=== PATIENT | female | born 1935 | race Hispanic/Latino ===

== ENCOUNTER 2016-07-20 08:36 | Observation (INO) | payer MEDICARE ==
[2016-07-20 08:51] VITALS: O2SAT 100; BMI 25.7
--- NOTE | 2016-07-20 09:03 | ED PDOC ---
Arrival/HPI - General Time Seen by Provider: 07/20/16 08:53 Historian: [facility] EM Caveat: Dementia - Critical Care Critical Care Minutes: 30 minutes - History of Present Illness Narrative History of Present Illness (Text): 07/20/16 09:00 Meenakshi Vegas is an 81 year old female who sent to emergency room by [facility] for hydration and blood transfusion due to anemia and elevated potassium. Patient responds to painful stimuli with moaning and localization. Patient has a gastronomy tube, a zuleta catheter, and picc line inserted. History and ROS is limited due to patient's acuity of condition. Time/Duration: Prior to Arrival Symptom Onset: Gradual Symptom Course: Worsening Severity Level: Mild Activities at Onset: Light Context: Other ([facility]) Associated Symptoms (Text): 07/20/16 09:13 Sent from the custodial for anemia and elevated potassium. Patient is nonverbal and unable to give any history. Past Medical History - Provider Review Nursing Documentation Reviewed: Yes - Infectious Disease Hx of Infectious Diseases: None - Tetanus Immunization Tetanus Immunization: Unknown - Past Medical History Past Medical History: No Previous - Cardiac Hx Cardiac Disorders: Yes (cad) Hx Cardiac Arrhythmia: Yes Hx Congestive Heart Failure: Yes Hx Hypertension: Yes Hx Pacemaker: No Other/Comment: valve replacement - Pulmonary Hx Respiratory Disorders: No - Neurological Hx Neurological Disorder: Yes HX Cerebrovascular Accident: Yes Hx Dementia: Yes Hx Seizures: Yes Hx Transient Ischemic Attacks (TIA): Yes (2012) - HEENT Hx HEENT Disorder: No - Renal Hx Renal Disorder: Yes - Endocrine/Metabolic Hx Endocrine Disorders: Yes Hx Hypothyroidism: Yes Hx Systemic Lupus Erythematosus: Yes - Hematological/Oncological Hx Blood Transfusions: Yes Hx Blood Transfusion Reaction: No - Integumentary Hx Dermatological Disorder: Yes Other/Comment: left buttock unstageable open wound 4.5cm x 4cm x 3.5cm deep with ss dng, multiple skin discolortions both arms, slight swelling left hand, b /l feet hammertoes, ble brown skin discolorations +1 edema lle, rleabove outer ankle skin indentation, brown skin discolorations left thigh, - Musculoskeletal/Rheumatological Hx Falls: Yes (past) - Gastrointestinal Hx Gastrointestinal Disorders: Yes Hx Gall Bladder Disease: Yes (1996) - Genitourinary/Gynecological Hx Incontinence: Yes (urine and stool) Hx Urinary Tract Infection: Yes - Psychiatric Hx Substance Use: No - Surgical History Hx Cholecystectomy: Yes (1996) Hx Orthopedic Surgery: Yes (b/l knee replacement) Other/Comment: left buttock debridement 2015, picc - Anesthesia Hx Anesthesia Reactions: No Hx Malignant Hyperthermia: No - Suicidal Assessment Feels Threatened In Home Enviroment: No Family/Social History - Physician Review Nursing Documentation Reviewed: Yes Family/Social History: No Known Family HX Smoking Status: Never Smoked Hx Alcohol Use: No Hx Substance Use: No Hx Substance Use Treatment: No Allergies/Home Meds Allergies/Adverse Reactions: Allergies codeine Allergy (Verified 09/26/15 06:28) RASH etodolac [From Lodine] Allergy (Verified 09/26/15 06:28) RASH sulfamethoxazole [From Bactrim] Allergy (Verified 09/26/15 06:28) SWELLING trimethoprim [From Bactrim] Allergy (Verified 09/26/15 06:28) SWELLING Home Medications: Home Meds Medication Instructions Recorded Confirmed Aspirin [Aspirin Chewable] 81 mg PO DAILY 07/05/15 07/03/16 Clopidogrel [Plavix] 75 mg PO DAILY 07/05/15 07/03/16 Docusate [Colace] 100 mg PO DAILY 07/05/15 07/03/16 Hydroxychloroquine Sulfate 400 mg PO DAILY 07/05/15 07/03/16 [Plaquenil] Levothyroxine [Synthroid] 50 mcg PO DAILY 07/05/15 07/03/16 Methylphenidate [Ritalin] 5 mg PO DAILY 07/05/15 07/03/16 Pantoprazole [Protonix EC Tab] 40 mg PO DAILY 07/05/15 07/03/16 buPROPion [Wellbutrin] 75 mg PO BID 07/05/15 07/03/16 Ferrous Sulfate [Feosol] 325 mg PO BID 04/15/16 07/03/16 azaTHIOprine [Azathioprine] 40 mg PO DAILY 04/15/16 07/03/16 Ascorbic Acid [Vitamin C 500 mg 500 mg PO DAILY 07/02/16 07/03/16 Tab] Atorvastatin [Lipitor] 40 mg PO DAILY 07/02/16 07/03/16 Magnesium Hydroxide [Milk Of 30 ml PO HS PRN 07/02/16 07/03/16 Magnesia] Prochlorperazine [Compazine Rectal 25 mg RC Q12H PRN 07/02/16 07/03/16 Supp] Zinc 1,000 mg PO DAILY 07/02/16 07/03/16 levETIRAcetam [Keppra] 250 mg PO BID 07/02/16 07/03/16 Review of Systems - Review of Systems Systems not reviewed;Unavailable: Dementia Physical Exam Vital Signs Reviewed: Yes Vital Signs Temp Pulse Resp BP Pulse Ox 07/20/16 11:11 68 18 131/57 L 100 07/20/16 10:03 76 18 142/84 100 07/20/16 08:50 99.4 F 75 18 140/73 100 07/20/16 08:45 82 20 140/73 99 Temperature: Afebrile Blood Pressure: Normal Pulse: Regular Respiratory Rate: Normal Appearance: Positive for: Other (Pale; multiple ecchymotic areas) Pain Distress: None Mental Status: Positive for: Alert and Oriented X 3 - Systems Exam Head: Present: Atraumatic, Normocephalic Pupils: Present: PERRL Extroacular Muscles: Present: EOMI Conjunctiva: Present: Normal Mouth: Present: Moist Mucous Membranes Pharnyx: No: ERYTHEMA, EXUDATE, TONSILS ENLARGED Neck: Present: Normal Range of Motion Respiratory/Chest: Present: Clear to Auscultation, Good Air Exchange, Decreased Breath Sounds. No: Respiratory Distress, Accessory Muscle Use Cardiovascular: Present: Regular Rate and Rhythm, Normal S1, S2. No: Murmurs Abdomen: Present: Normal Bowel Sounds, Feeding Tubes. No: Tenderness, Distention, Peritoneal Signs Rectal: No: Occult Blood, Gross Blood, Melena Back: Present: Normal Inspection Upper Extremity: Present: Normal Inspection Lower Extremity: Present: Other (severe bilateral chronic venous stasis changes ) Neurological: Present: GCS=15, CN II-XII Intact, Other (Moves all extremities to painful stimuli). No: Speech Normal Skin: Present: Pale, Other (multiple ecchymotic areas) Medical Decision Making ED Course and Treatment: 07/20/16 09:00 Impression: 81 year old female sent in by [facility] for hydration and blood transfusion due to anemia and elevated potassium. Plan: -- EKG -- Chest X-ray -- Urinalysis -- Type and screen -- Labs -- Reassess and disposition Prior Visits: Notes and results from previous visits were reviewed. Patient last seen in the ED on 07/03/16 sent in by [facility] for abnormal labs. Patient was admitted to hospital for further evaluation. Progress Notes: 07/20/16 09:16 EKG shows normal sinus rhythm rate approximately [address] or T-wave changes and a right bundle branch block 07/20/16 10:[address] Ayon who instructs to put patient under telemetry observation. 07/20/16 10:27 Chest X-ray: Creator : Nisa Larson MD FINDINGS: Left-sided PICC extends expected location of the SVC. LUNGS:Mild pulmonary venous congestion. Small bilateral pleural effusions. No definite pneumothorax. Please note that chest x-ray has limited sensitivity for the detection of pulmonary masses. CARDIOVASCULAR:Median sternotomy wires. Heart size appears top normal. Ectatic aorta. Atherosclerotic calcifications. OSSEOUS STRUCTURES: Osseous demineralization. Degenerative changes of the spine and shoulders. Acromioclavicular arthropathy. High-riding humeral head may be seen in the setting of chronic rotator cuff injury. VISUALIZED UPPER ABDOMEN:Unremarkable. OTHER FINDINGS:None. IMPRESSION: Mild pulmonary venous congestion. Small bilateral pleural effusions. Left-sided PICC. - Lab Interpretations Lab Results: 07/20/16 09:27 07/20/16 09:27 Lab Results 07/20/16 09:50: Urine Color Yellow, Urine Appearance Sl cloudy, Urine pH 7.5, Ur Specific Kake 1.010, Urine Protein Trace H, Urine Glucose (UA) Negative, Urine Ketones Negative, Urine Blood Large H, Urine Nitrate Negative, Urine Bilirubin Negative, Urine Urobilinogen 0.2, Ur Leukocyte Esterase Large H, Urine RBC 5 - 10, Urine WBC 25 - 30, Ur Epithelial Cells 10 - 12, Urine Bacteria Few 07/20/16 09:44: Blood Type O POSITIVE, Antibody Screen Negative, Crossmatch See Detail, BBK History Checked Patient has bt 07/20/16 09:27: WBC 4.6 D, RBC 2.17 L, Hgb 6.8 L*, Hct 20.0 L*, MCV 92.2, MCH 31.3, MCHC 34.0, RDW 20.0 H, Plt Count 145, MPV 9.1, Gran % 62.7, Lymph % (Auto ) 13.[address] L, [place] % (Auto) 7.7 H, Eos % (Auto) 14.9 H, Baso % (Auto) 0.9, Gran # 2.86, Lymph # 0.[address] L, [place] # 0.4, Eos # 0.7, Baso # 0.04, PT 10.9, INR 1.01, APTT 32.9 H, Sodium 132, Potassium 6.3 H* D, Chloride 106, Carbon Dioxide 25, Anion Gap 7 L, BUN 63 H, Creatinine 1.6 H, Est GFR ( Amer) 37, Est GFR ( Non-Af Amer) 31, Random Glucose 76, Calcium 8.3 L, Phosphorus 5.0 H, Magnesium 1.4 L, Total Bilirubin 0.3, AST 60 H, ALT 55, Alkaline Phosphatase 250 H, Lactate Dehydrogenase 463, Total Creatine Kinase 27 L, Troponin I 0.02 D, Total Protein 4.9 L, Albumin 2.0 L, Globulin 2.9, Albumin/Globulin Ratio 0.7 L I have reviewed the lab results: Yes - RAD Interpretation Radiology Orders: 07/20/16 09:02 CHEST PORTABLE [RAD] Stat Chest 1 view shows hardware with no infiltrate effusion or cardiomegaly Child Support Investigator: ED Physician - Medication Orders Current Medication Orders: Discontinued Medications Dextrose (Dextrose 50% Inj) 50 ml IVP STAT STA Stop: 07/20/16 10:06 Last Admin: 07/20/16 10:20 Dose: 50 ML IVP Administration Document 07/20/16 10:20 OCS (Rec: 07/20/16 10:47 [id number] Charges for Administration # of IVP Administrations 1 Sodium Chloride (Sodium Chloride 0.9%) 500 mls @ 500 mls/hr IV ONCE ONE Stop: 07/20/16 11:03 Last Admin: 07/20/16 10:20 Dose: 500 MLS/HR eMAR Start Stop Document 07/20/16 10:20 OCS (Rec: 07/20/16 10:47 [id number] Intravenous Solution Start Date 07/20/16 Start Time 10:20 Insulin Human Regular (Humulin R) 10 units IV ONCE STA Stop: 07/20/16 10:05 Last Admin: 07/20/16 10:20 Dose: 10 UNITS MAR Blood Glucose Document 03/18/17 10:20 OCS (Rec: 07/20/16 10:47 [facility] [id number]) Blood Glucose Finger Stick Blood Glucose (70-120) 83 eMAR Start Stop Document 07/20/16 10:20 OCS (Rec: 07/20/16 10:47 [facility] [id number]) Intravenous Solution Start Date 07/20/16 Start Time 10:47 - Scribe Statement The provider has reviewed the documentation as recorded by the Lizibcandy Barbosa Provider Scribe Attestation: All medical record entries made by the Scribe were at my direction and personally dictated by me. I have reviewed the chart and agree that the record accurately reflects my personal performance of the history, physical exam, medical decision making, and the department course for this patient. I have also personally directed, reviewed, and agree with the discharge instructions and disposition. Disposition/Present on Arrival - Present on Arrival Any Indicators Present on Arrival: Yes History of DVT/PE: No History of Uncontrolled Diabetes: No Urinary Catheter: Yes History of Decub. Ulcer: Yes History Surgical Site Infection Following: None - Disposition Have Diagnosis and Disposition been Completed?: Yes Diagnosis: Anemia, Altered mental status, Hyperkalemia, Dehydration Disposition: HOSPITALIZED Disposition Time: 10:10 Patient Plan: Observation, Telemetry Patient Problems: Current Active Problems Problem Status Diagnosed Altered mental status Acute Anemia Acute Dehydration Acute Hyperkalemia Acute Condition: GUARDED
[2016-07-20 09:28] LABS: ADD MANUAL DIFF? NO
[2016-07-20 09:43] LABS: BASO # 0.04 K/mm3 (0.0-2.0); BASO % 0.9 % (0.0-3.0); EOS # 0.7 (0.0-0.7); EOS % 14.9 % (1.5-5.0); GRAN # 2.86 (1.4-6.5); GRAN % 62.7 % (50.0-68.0); LYMPH # 0.6 (1.2-3.4); LYMPH % 13.8 % (22.0-35.0); MEAN CELL VOLUME 92.2 fL (80.0-105.0); MEAN CORPUSCULAR HEMOGLOBIN 31.3 pg (25.0-35.0); MEAN PLATELET VOLUME 9.1 fl (7.0-11.0); MONO # 0.4 (0.1-0.6); MONO % 7.7 % (1.0-6.0); PLATELET COUNT 145 10^3/uL (120.0-450.0); WHITE BLOOD COUNT 4.6 10^3/ul (4.5-11.0)
[2016-07-20 09:44] LABS: INR 1.01 (0.93-1.08); PARTIAL THROMBOPLASTIN TIME 32.9 Seconds (23.7-30.8)
[2016-07-20 09:47] LABS: ALB/GLOB RATIO 0.7 (1.1-1.8); BILIRUBIN,TOTAL 0.3 mg/dL (0.2-1.3); CALCIUM 8.3 mg/dL (8.4-10.5); MAGNESIUM 1.4 mg/dL (1.7-2.2); TOTAL PROTEIN 4.9 g/dL (5.8-8.3)
[2016-07-20 09:58] LABS: TROPONIN I 0.02 ng/mL
[2016-07-20 10:01] LABS: POTASSIUM 6.3 mmol/L (3.6-5.0)
[2016-07-20] MEDS ORDERED: Sodium Chloride 0.9% 500 ML IV ONE (10:04)
[2016-07-20] MEDS ORDERED: Insulin Regular 1 UNITS/0.01 ML ML IV STA (10:04)
[2016-07-20] MEDS ORDERED: Dextrose 50% SYRINGE Inj (50 ml) IVP STA (10:05)
--- NOTE | 2016-07-20 10:21 | RAD ---
HISTORY: ams COMPARISON: Chest x-ray performed 07/03/16 TECHNIQUE: Chest, one view. FINDINGS: Left-sided PICC extends expected location of the SVC. LUNGS: Mild pulmonary venous congestion. Small bilateral pleural effusions. No definite pneumothorax. Please note that chest x-ray has limited sensitivity for the detection of pulmonary masses. CARDIOVASCULAR: Median sternotomy wires. Heart size appears top normal. Ectatic aorta. Atherosclerotic calcifications. OSSEOUS STRUCTURES: Osseous demineralization. Degenerative changes of the spine and shoulders. Acromioclavicular arthropathy. High-riding humeral head may be seen in the setting of chronic rotator cuff injury. VISUALIZED UPPER ABDOMEN: Unremarkable. OTHER FINDINGS: None. IMPRESSION: Mild pulmonary venous congestion. Small bilateral pleural effusions. Left-sided PICC.
[2016-07-20 10:41] LABS: PH,URINE 7.5 (4.7-8.0); URINE BILIRUBIN NEGATIVE (NEGATIVE); URINE BLOOD LARGE (NEGATIVE); URINE GLUCOSE (UA) NEGATIVE (NEGATIVE); URINE KETONE NEGATIVE (NEGATIVE); URINE LEUKOCYTE ESTERASE LARGE Leu/uL (NEGATIVE); URINE PROTEIN TRACE mg/dL (<30 mg/dL); URINE UROBILINOGEN 0.2 E.U./dL (<1 E.U./dL)
[2016-07-20 10:58] LABS: URINE COLOR YELLOW (YELLOW)
[2016-07-20 11:06] LABS: URINE APPEARANCE SL CLOUDY (CLEAR)
[2016-07-20 11:10] LABS: URINE WBC 25 - 30 /hpf (0-6)
[2016-07-20 11:11] LABS: URINE BACTERIA FEW (NEG)
--- NOTE | 2016-07-20 13:27 | CP.PCM.PCO ---
Physician Communication Note - Physician Communication Note Physician Communication Note: Hgb 6/K 6.3/Decubitus clean/Delfino cons measures only
[2016-07-20] MEDS: levETIRAcetam 500 mg/5ml UD cups PO SCH (14:21)
[2016-07-20] MEDS: Pantoprazole 40 mg Susp UD PO SCH (14:21)
[2016-07-20] MEDS: Levothyroxine 50 MCG TAB PO SCH (14:22)
--- NOTE | 2016-07-20 16:15 | HP ---
ADMITTING DIAGNOSES: Anemia, hyperkalemia, chronic kidney disease, systemic lupus erythematosus, wong or depression. HISTORY OF PRESENT ILLNESS: This is an unfortunate [id number] female with multiple medical problem s undergoing subacute rehab in [facility]. She has had increasing inanition over the [facility] 2 months. A G tube was placed last month and she has been given enteral hydration and nutrition; however, her follow up labs this week revealed severe hyperkalemia and continued dehydration. She wa s transferred here for blood transfusion and hydration for her hyperkalemia. In the facility her pot assium was 6.8 and in the ER today it was 6.3. She received normal saline and now is admitted for th e blood transfusion to telemetry observation. PAST MEDICAL HISTORY: Is significant for systemic lupus erythematous with lupus cerebritis in the [facility]. She suffers from major depression, multi-infarct dementia and coronary artery disease. She is s tatus post CABG in the distant past and has had multiple psychiatric admissions for her altered menta l status. Her lupus at this point is controlled with Imuran and azathioprine. SOCIAL HISTORY: No smoking, alcohol or substance use. Until a few years ago she was a vibrant activ e woman caring of her disabled . OTHER PAST SURGICAL HISTORY: Is significant for extensive orthopedic surgery for her arthritis. She had a stage IV left-side buttocks decubitus, which is extensively debrided for possible osteomyeliti s, for which she received 6 weeks of antibiotics in [facility] [place] and later in [facility]. FAMILY HISTORY: Noncontributory. PHYSICAL EXAMINATION: GENERAL: She is a verbal elderly white female, looking pale, in no acute distress. VITAL SIGNS: Reveal a temperature of 99.4, respiration 18, pulse 68, blood pressure 131/57. HEENT: PERRLA, EOMI. Mucous membranes are dry. NECK: Supple, no JVD, bruits, no thyromegaly. CHEST: Symmetrical. LUNGS: Have fine rales bilaterally. HEART: Regular rhythm and rate. ABDOMEN: Soft, nontender. No guarding or rebound . Has a G-tube in place. EXTREMITIES: No cyanosis, clubbing or edema. There is stage IV left buttock decubitus with a clean base. NEUROLOGIC: Is grossly nonfocal. She moves all extremities. LABORATORY DATA: Is significant for a white count of 4.6, hemoglobin 6.8, hematocrit 20.0, platelet count is 145. Potassium 6.3, BUN 63, creatinine 1.6, phosphorus 5.0, magnesium 1.4, AST 60, ALT 55, alkaline phosphatase 250. CK is low at 27. Troponin 0.02. Albumin 2.0. Chest x-ray: Mild pulmon sabina vascular congestion. EKG: Incomplete left bundle branch block. ASSESSMENT: We have an 81-year-old female with inanition from major depression and systemic lupus er ythematosus controlled with G-tube feeding around the clock. PLAN: The patient is admitted to telemetry observation. Will receive 2 units of packed cells transf used, intravenous and enteral hydration. Electrolytes and CBC will be followed post-transfusion and likely transfer back to [facility] later tonight. A transfusion, the consent was obtained fr om the patient's . Was advised to have her caregivers to learn to use the G-tube prior to her discharge to home from [facility]. Hypomagnesemia will be repleted. Rashad Gomes MD cc: 84 TT: 07/20/2016 16:14:32 cindy
--- NOTE | 2016-07-20 19:31 | CP.PCM.CON ---
<Keturah Timmons - Last Filed: 07/20/16 19:46> History of Present Illness - History of Present Illness History of Present Illness: General Surgery consult note for Dr. Croft Consulted for: Sacral decubitus ulcer Patient has altered mental status 2/2 SLE cerebritis and multi-infarct dementia. Most HPI taken from ED note and H&P and chart history. 81F with PMH of SLE with cerebritis, multi-infarct dementia, CAD with CABG, CKD , and chronic decubitus ulcer. PSH: debridement of sacral decubitus ulcer, cholecystectomy and gastrostomy tube insertion. Patient presented to ED from [facility] for hyperkalemia and anemia. Surgery is consulted for her sacral decubitus ulcer. Stage IV decubitus ulcer was present 3 months ago with a necrotizing fasciitis infection with possible osteomyelitis. Ulcer was debrided in the OR. Patient completed 6 weeks of IV antibiotics in the [facility]. Patient reports pain in the wound when they do dressing changes but no other pain, fevers, chills, nausea, vomiting, or any other symptoms. Patient had a low temp of 34.4 degrees celsius which has resolved with a heating blanket. Otherwise VSS. Patient received 2 units of PRBC's PMH: SLE with cerebritis, multi-infarct dementia, CAD with CABG, CKD, arthritis , depression and chronic decubitus ulcer PSH: extensive orthopedic surgery for arthritis, cholecystectomy CABG, debridement of sacral decubitus ulcer with necrotizing fasciitis and possible osteomyelitis Review of Systems - Review of Systems Systems not reviewed;Unavailable: Altered Mental Status Past Patient History - Infectious Disease Hx of Infectious Diseases: None - Tetanus Immunizations Tetanus Immunization: Unknown - Past Medical History & Family History Past Medical History?: Yes - Past Social History Smoking Status: Never Smoked - CARDIAC Hx Cardiac Disorders: Yes (cad) Hx Cardia Arrhythmia: Yes Hx Congestive Heart Failure: Yes Hx Hypertension: Yes Hx Pacemaker: No Other/Comment: valve replacement - PULMONARY Hx Respiratory Disorders: No - NEUROLOGICAL Hx Neurological Disorder: Yes HX Cerebrovascular Accident: Yes Hx Dementia: Yes Hx Seizures: Yes Hx Transient Ischemic Attacks (TIA): Yes (2012) - HEENT Hx HEENT Problems: No - RENAL Hx Chronic Kidney Disease: Yes - ENDOCRINE/METABOLIC Hx Endocrine Disorders: Yes Hx Hypothyroidism: Yes Hx Systemic Lupus Erythematosus: Yes - HEMATOLOGICAL/ONCOLOGICAL Hx Blood Transfusions: Yes Hx Blood Transfusion Reaction: No - INTEGUMENTARY Hx Dermatological Problems: Yes Other/Comment: sacral decubitus ulcer - MUSCULOSKELETAL/RHEUMATOLOGICAL Hx Falls: Yes (past) - GASTROINTESTINAL Hx Gastrointestinal Disorders: Yes Hx Gall Bladder Disease: Yes (1996) - GENITOURINARY/GYNECOLOGICAL Hx Incontinence: Yes (urine and stool) Hx Urinary Tract Infection: Yes - PSYCHIATRIC Hx Substance Use: No - SURGICAL HISTORY Hx Cholecystectomy: Yes (1996) Hx Orthopedic Surgery: Yes (b/l knee replacement) Other/Comment: left buttock debridement 2015, picc - ANESTHESIA Hx Anesthesia Reactions: No Hx Malignant Hyperthermia: No Meds Allergies/Adverse Reactions: Allergies Allergy/AdvReac Type Severity Reaction Status Date / Time codeine Allergy RASH Verified 07/20/16 18:44 etodolac [From Lodine] Allergy RASH Verified 07/20/16 18:44 sulfamethoxazole Allergy SWELLING Verified 07/20/16 18:44 [From Bactrim] trimethoprim [From Bactrim] Allergy SWELLING Verified 07/20/16 18:44 - Medications Medications: Current Medications Acetaminophen (Tylenol 325mg Tab) 650 mg GT Q6H [facility] Last Admin: 07/20/16 14:21 Dose: 650 mg Aspirin (Aspirin Chewable) 81 mg PO DAILY [facility] Last Admin: 07/20/16 14:20 Dose: 81 mg Azathioprine (Imuran) 50 mg PO DAILY [facility] Last Admin: 07/20/16 14:22 Dose: 50 mg Cholecalciferol (Vitamin D) 1,000 iu PO DAILY [facility] Last Admin: 07/20/16 14:21 Dose: 1,000 iu Hydroxychloroquine Sulfate (Plaquenil) 200 mg PO DAILY [facility] Last Admin: 07/20/16 14:22 Dose: 200 mg Levetiracetam (Keppra) 500 mg PO DAILY [facility] Last Admin: 07/20/16 14:21 Dose: 500 mg Levothyroxine Sodium (Synthroid) 50 mcg PO ACB [facility] Last Admin: 07/20/16 14:22 Dose: 50 mcg Methylphenidate HCl (Ritalin) 5 mg PO DAILY [facility] Last Admin: 07/20/16 14:21 Dose: 5 mg Pantoprazole Sodium (Protonix Susp) 40 mg PO DAILY [facility] Last Admin: 07/20/16 14:21 Dose: 40 mg Sertraline HCl (Zoloft) 25 mg PO [facility] Physical Exam - Constitutional Appears: No Acute Distress - Head Exam Head Exam: ATRAUMATIC, NORMOCEPHALIC - Eye Exam Eye Exam: Normal appearance - ENT Exam ENT Exam: Mucous Membranes Dry - Respiratory Exam Respiratory Exam: absent: Accessory Muscle Use, Respiratory Distress - Cardiovascular Exam Cardiovascular Exam: absent: Bradycardia, Tachycardia - GI/Abdominal Exam GI & Abdominal Exam: Soft. absent: Rigid, Tenderness Additional comments: gastrostomy tube in place without any leaking or surrounding erythema or drainage - Extremities Exam Extremities exam: Positive for: pedal edema. Negative for: calf tenderness Additional comments: Dark red/brown discoloration to the skin of the lower legs BL - Back Exam Back exam: absent: rash noted Additional comments: Stage IV sacral decubitus ulcer with healthy granulation tissue and musculature visible. No surrounding erythema, necrotic tissue, or purulent drainage visible - Neurological Exam Neurological exam: Altered - Psychiatric Exam Psychiatric exam: Flat Affect - Skin Skin Exam: Dry, Warm Results - Vital Signs Recent Vital Signs: Last Vital Signs Temp 98 F 07/20/16 18:52 Pulse 81 07/20/16 18:52 Resp 18 07/20/16 18:52 BP 118/67 07/20/16 18:52 Pulse Ox 100 07/20/16 11:11 - Labs Result Diagrams: 07/20/16 09:27 07/20/16 09:27 Labs: Laboratory Results - last 24 hr 07/20/16 10:37 POC Glucose (mg/dL) 83 Assessment & Plan - Assessment and Plan (Free Text) Assessment: 81F with chronic stage IV sacral decubitus ulcer, dementia, and CKD presenting to the ED for hyperkalemia and anemia H/H: 6.8/20.0 K: 6.3 Plan: No indication for surgical intervention--ulcer without necrotic tissue or purulent drainage Daily dressing changes and wound care for the ulcer May benefit from a EGD and colonoscopy Medical management per primary team Thank you for this consult Discussed with Dr. Lang Timmons, PGY1 <Nilesh Croft - Last Filed: 07/22/16 10:17> Results - Vital Signs Recent Vital Signs: Last Vital Signs Temp 97.9 F 07/21/16 12:00 Pulse 98 H 07/21/16 15:43 Resp 20 07/21/16 12:00 BP 106/56 L 07/21/16 12:00 Pulse Ox 100 07/20/16 11:11 - Labs Result Diagrams: 07/21/16 06:59 07/21/16 06:59 Assessment & Plan - Assessment and Plan (Free Text) Assessment: Dx Buttock Decubitus Stage III-Clean Severe Anemia(?PUD) Severe Hyperkalemia/Renal Insufficiency Multi Infarct dementia*(SLE) Consult done under mt direct supervision Shanice Croft MD FACS
[2016-07-20 19:32] LABS: ADD MANUAL DIFF? NO
[2016-07-20 19:38] LABS: BASO # 0.03 K/mm3 (0.0-2.0); BASO % 0.6 % (0.0-3.0); EOS # 0.5 (0.0-0.7); EOS % 8.8 % (1.5-5.0); GRAN # 3.81 (1.4-6.5); GRAN % 72.7 % (50.0-68.0); LYMPH # 0.6 (1.2-3.4); LYMPH % 11.6 % (22.0-35.0); MEAN CELL VOLUME 90.8 fL (80.0-105.0); MEAN CORPUSCULAR HEMOGLOBIN 31.3 pg (25.0-35.0); MEAN CORPUSCULAR HGB CONC 34.5 g/dl (31.0-37.0); MONO # 0.3 (0.1-0.6); MONO % 6.3 % (1.0-6.0); PLATELET COUNT 142 10^3/uL (120.0-450.0); RED CELL DISTRIBUTION WIDTH 18.8 % (11.5-14.5); WHITE BLOOD COUNT 5.2 10^3/ul (4.5-11.0)
[2016-07-20 19:53] LABS: HEMATOCRIT 22.6 % (36.0-48.0)
[2016-07-20 20:19] LABS: POTASSIUM 6.4 mmol/L (3.6-5.0)
[2016-07-20] MEDS ORDERED: Influenza Vaccine 45 MCG/0.5 ml IM ONE (21:59)
[2016-07-20] MEDS ORDERED: Pneumococcal 23-Valent Vaccine IM ONE (21:59)
[2016-07-21 06:08] VITALS: RESP 20
[2016-07-21 07:02] LABS: ADD MANUAL DIFF? NO
[2016-07-21 07:20] LABS: BASO # 0.03 K/mm3 (0.0-2.0); BASO % 0.5 % (0.0-3.0); EOS # 0.5 (0.0-0.7); GRAN # 5.17 (1.4-6.5); GRAN % 78.3 % (50.0-68.0); HEMATOCRIT 26.4 % (36.0-48.0); LYMPH # 0.5 (1.2-3.4); LYMPH % 8.2 % (22.0-35.0); MEAN CELL VOLUME 89.2 fL (80.0-105.0); MEAN CORPUSCULAR HEMOGLOBIN 30.4 pg (25.0-35.0); MEAN CORPUSCULAR HGB CONC 34.1 g/dl (31.0-37.0); MEAN PLATELET VOLUME 9.3 fl (7.0-11.0); MONO # 0.3 (0.1-0.6); PLATELET COUNT 150 10^3/uL (120.0-450.0); RED CELL DISTRIBUTION WIDTH 18.5 % (11.5-14.5); WHITE BLOOD COUNT 6.6 10^3/ul (4.5-11.0)
[2016-07-21 07:43] LABS: ALB/GLOB RATIO 0.7 (1.1-1.8); BILIRUBIN,TOTAL 0.4 mg/dL (0.2-1.3); CALCIUM 8.2 mg/dL (8.4-10.5)
[2016-07-21 08:14] LABS: POTASSIUM 6.4 mmol/L (3.6-5.0)
--- NOTE | 2016-07-21 09:35 | CARD ---
APPROVED REPORT EKG Measurement Heart [id number] <Conclusion> Normal sinus rhythm IVCD No change
--- NOTE | 2016-07-21 12:36 | PN ---
DATE: 07/21/2016 ATTENDING: The patient appears comfortable, tolerated transfusion of 2 units packed cells well. Hyp erkalemia persists despite Lasix overnight, K of 3.4. PHYSICAL EXAMINATION: VITAL SIGNS: Stable. Temperature is 98.7, respirations 20, pulse 86, blood pressure 132/63. LUNGS: Clear. HEART: Regular rate and rhythm. ABDOMEN: Soft, nontender. EXTREMITIES: No edema. PLAN: Continue current therapy with increasing hydration and furosemide at skilled nursing to control h yperkalemia. Guarded prognosis at best, but possible discharge to home with home hospice if family c ould be made to agree. Will repeat labs in the skilled nursing later this week. MEDICATIONS ON DISCHARGE: Shall be aspirin 81 daily, Imuran 50 mg daily, Keppra 500 daily, Plaquenil 200 daily, Protonix 40 daily, Ritalin 5 daily, Synthroid 50 mcg daily, Tylenol 650 q. 6, vitamin D 1 000 units daily, Zoloft 25 mg at bedtime. Her condition is improved with followup hemoglobin of 9.0. Diet will be Jevity 5 cans a day plus hyd ration 2 liters a day with additional furosemide 20 mg via G-tube daily. Activity is bedrest with be dsore precautions. Dr. Timmons, surgical consult, greatly appreciated. Rashad Gomes MD cc: [id number] TT: 07/21/2016 12:35:31 Confirmation # [id number] Dictation # [id number]
--- NOTE | 2016-07-21 12:40 | CP.PCM.PN ---
Subjective - Date & Time of Evaluation Date of Evaluation: 07/21/16 Time of Evaluation: 12:37 - Subjective Subjective: Surgery: Dr. Croft Pt seen and examined. States that she does not feel well. Has numbness in B/L arms and legs. She has pain in legs as well. Denies GONZALES and blurred vision. She does not have any slurred speech Objective - Vital Signs/Intake and Output Vital Signs (last 24 hours): Temp Pulse Resp BP Pulse Ox 98.7 F 86 20 132/63 100 07/21/16 06:00 07/21/16 06:00 07/21/16 06:00 07/21/16 06:00 07/20/16 11:11 Intake and Output: 07/21/16 07/21/16 06:59 18:59 Intake Total 700 Output Total 2000 Balance -1300 - Medications Medications: Current Medications Acetaminophen (Tylenol 325mg Tab) 650 mg GT Q6H [facility] Last Admin: 07/21/16 09:45 Dose: Not Given Aspirin (Aspirin Chewable) 81 mg PO DAILY [facility] Last Admin: 07/20/16 14:20 Dose: 81 mg Azathioprine (Imuran) 50 mg PO DAILY [facility] Last Admin: 07/20/16 14:22 Dose: 50 mg Cholecalciferol (Vitamin D) 1,000 iu PO DAILY [facility] Last Admin: 07/20/16 14:21 Dose: 1,000 iu Hydroxychloroquine Sulfate (Plaquenil) 200 mg PO DAILY [facility] Last Admin: 07/20/16 14:22 Dose: 200 mg Levetiracetam (Keppra) 500 mg PO DAILY [facility] Last Admin: 07/20/16 14:21 Dose: 500 mg Levothyroxine Sodium (Synthroid) 50 mcg PO ACB [facility] Last Admin: 07/20/16 14:22 Dose: 50 mcg Methylphenidate HCl (Ritalin) 5 mg PO DAILY [facility] Last Admin: 07/20/16 14:21 Dose: 5 mg Pantoprazole Sodium (Protonix Susp) 40 mg PO DAILY [facility] Last Admin: 07/20/16 14:21 Dose: 40 mg Sertraline HCl (Zoloft) 25 mg PO HS [facility] Last Admin: 07/21/16 04:18 Dose: 25 mg - Labs Labs: 07/21/16 06:59 07/21/16 06:59 PT 10.9 Seconds (9.9-11.8) 07/20/16 09:27 INR 1.01 (0.93-1.08) 07/20/16 09:27 APTT 32.9 Seconds (23.7-30.8) H 07/20/16 09:27 - Constitutional Appears: Non-toxic, No Acute Distress, Chronically Ill - Head Exam Head Exam: ATRAUMATIC, NORMOCEPHALIC Additional comments: no facial droop - Eye Exam Eye Exam: EOMI - ENT Exam ENT Exam: Mucous Membranes Moist - Respiratory Exam Respiratory Exam: NORMAL BREATHING PATTERN. absent: Accessory Muscle Use, Respiratory Distress - GI/Abdominal Exam GI & Abdominal Exam: Soft. absent: Tenderness - Extremities Exam Additional comments: 4/5 strength B/L UE -B/L LE + edema, calves tender to palpation, chronic venous changes noted - Back Exam Additional comments: stage IV decub, healthy granulation tissue. No signs of infection - Neurological Exam Neurological Exam: Alert, Awake, Oriented x3 - Skin Skin Exam: Dry, Normal Color, Warm Assessment and Plan - Assessment and Plan (Free Text) Assessment: 81F w. sacral decub -daily optifoam dressing changes -Duplex ordered, r/o DVT -heparin for dvt prophylaxis -will d/w attending Zemaitis PGY2
[2016-07-21 12:55] VITALS: BP 106/56; PULSE 98; TEMP 97.9
[2016-07-21] MEDS: Pantoprazole 40 mg Susp UD PO SCH (14:10)
[2016-07-21] MEDS: Levothyroxine 50 MCG TAB PO SCH (14:10)
[2016-07-21] MEDS: levETIRAcetam 500 mg/5ml UD cups PO SCH (14:10)
--- NOTE | 2016-07-22 20:14 | US ---
HISTORY: Leg pain and swelling. Evaluate for DVT PHYSICIAN(S): Ankit Kapoor MD. TECHNIQUE: Duplex sonography and color-flow Doppler with graded compression were used to evaluate the deep venous systems of both lower extremities. The exam is somewhat limited by edema. FINDINGS: The visualized deep venous systems of both lower extremities are sonographically normal and compressible. Normal wave forms and augmentation are seen. There is no sonographic evidence for deep venous thrombosis in the visualized segments of both lower extremities. IMPRESSION: No sonographic evidence for deep venous thrombosis in the visualized segments of both lower extremities.
== END 2016-07-21 16:35 ==
LOC: ED 08:36 → ERH 10:17 → 2RNO 12:21
PROVIDERS: ADMIT Internal Medicine; ATTEND Internal Medicine
DX: D64.9 Anemia, unspecified (principal); E87.5 Hyperkalemia; E86.0 Dehydration; L89.154 Pressure ulcer of sacral region, stage 4; M32.19 Other organ or system involvement in systemic lupus erythematosus; F01.50 Vascular dementia, unspecified severity, without behavioral disturbance, psychotic disturbance, mood disturbance, and anxiety; I25.10 Atherosclerotic heart disease of native coronary artery without angina pectoris; F32.9 Major depressive disorder, single episode, unspecified; E83.42 Hypomagnesemia; I12.9 Hypertensive chronic kidney disease with stage 1 through stage 4 chronic kidney disease, or unspecified chronic kidney disease; N18.9 Chronic kidney disease, unspecified; I45.10 Unspecified right bundle-branch block; Z96.653 Presence of artificial knee joint, bilateral; Z93.1 Gastrostomy status; Z79.82 Long term (current) use of aspirin; Z95.1 Presence of aortocoronary bypass graft; Z88.8 Allergy status to other drugs, medicaments and biological substances; Z88.2 Allergy status to sulfonamides
CPT/HCPCS: 36415; 36430; 71010; 80053; 81001; 82550; 82948; 83615; 83735; 84100; 84443; 84484; 85025; 85610; 85730; 86850; 86900; 86920; 87086; 87181; 93005; 93970; 96374; 99285; G0378; J1644; J1940; J7040; J7500; P9040

== ENCOUNTER 2016-09-10 13:51 | Inpatient (IN) | payer MEDICARE ==
[2016-09-10 14:01] VITALS: BMI 18.3
--- NOTE | 2016-09-10 14:46 | ED PDOC ---
Arrival/HPI - General Chief Complaint: Abnormal Labs Time Seen by Provider: 09/10/16 13:59 Historian: Patient, EMS - History of Present Illness Narrative History of Present Illness (Text): 09/10/16 14:47 An 81 year old female h/o CVA, Anemia, Hyperkalemia, CKD, SLE, Depression, CABG , presents to the emergency department because her doctor sent patient for a blood transfusion, but patient had an anxiety attack on way to the emergency department by EMS. Patient is awake and alert, but not oriented or answering to questions. I discussed case with patient's who states he was told that they checked her Hgb and it was low. I called patient NEHEMIAH Hathaway who states that she consents to the blood transfusion of needed. Family doesn't remember any other symptoms of fever, cough, abdominal pain or back that the patient states. Patient doesn't communicate as per family because she had stroke in 2012. PMD - Reported by family that PMD is now Dr. Aldridge and the person DARLEEN Michelle was the one who checked the blood and told them to come in. 09/10/16 15:06 Time/Duration: Prior to Arrival Symptom Onset: Sudden Symptom Course: Unchanged Activities at Onset: Rest Associated Symptoms (Text): none Past Medical History - Provider Review Nursing Documentation Reviewed: Yes - Infectious Disease Hx of Infectious Diseases: None - Tetanus Immunization Tetanus Immunization: Unknown - Past Medical History Past Medical History: No Previous - Cardiac Hx Cardiac Disorders: Yes (cad) Hx Cardiac Arrhythmia: Yes Hx Congestive Heart Failure: Yes Hx Hypertension: Yes Hx Pacemaker: No Other/Comment: valve replacement - Pulmonary Hx Respiratory Disorders: No - Neurological Hx Neurological Disorder: Yes HX Cerebrovascular Accident: Yes Hx Dementia: Yes Hx Seizures: Yes Hx Transient Ischemic Attacks (TIA): Yes (2012) - HEENT Hx HEENT Disorder: No - Renal Hx Renal Disorder: Yes - Endocrine/Metabolic Hx Endocrine Disorders: Yes Hx Hypothyroidism: Yes Hx Systemic Lupus Erythematosus: Yes - Hematological/Oncological Hx Blood Disorders: Yes Hx Shingles: Yes Other/Comment: SLE - Integumentary Hx Dermatological Disorder: Yes Other/Comment: sacral decubitus ulcer-STAGE 4. BILATERAL ARMS EDEMA +2 MORE TO LEFT. GENERALIZED SKIN DISCOLORATION/GRAYISH TO BROWNSIH IN COLOR,SKIN DRYNESS, FLAKY SKIN MAINLY TO UPPER BACK. THICKEND TOENAILS,WITH CALLOUSED POST PART. - Musculoskeletal/Rheumatological Hx Arthritis: Yes Hx Falls: Yes (past) - Gastrointestinal Hx Gastrointestinal Disorders: Yes Hx Gall Bladder Disease: Yes (1996) - Genitourinary/Gynecological Hx Genitourinary Disorders: Yes Hx Incontinence: Yes (urine and stool) Hx Urinary Tract Infection: Yes - Psychiatric Hx Anxiety: Yes Hx Bipolar Disorder: Yes Hx Depression: Yes Hx Substance Use: (UNKNOWN) - Surgical History Hx Cholecystectomy: Yes (1996) Hx Orthopedic Surgery: Yes (b/l knee replacement) Other/Comment: left buttock debridement 2016, picc - Anesthesia Hx Anesthesia Reactions: No Hx Malignant Hyperthermia: No - Suicidal Assessment Feels Threatened In Home Enviroment: No Family/Social History - Physician Review Nursing Documentation Reviewed: Yes Family/Social History: No Known Family HX Smoking Status: Unknown If Ever Smoked Hx Alcohol Use: (UNKNOWN) Hx Substance Use: (UNKNOWN) Hx Substance Use Treatment: No Allergies/Home Meds Allergies/Adverse Reactions: Allergies codeine Allergy (Verified 09/10/16 14:02) RASH etodolac [From Lodine] Allergy (Verified 09/10/16 14:02) RASH iodine Allergy (Verified 09/10/16 14:02) ANAPHYLAXIS sulfamethoxazole [From Bactrim] Allergy (Verified 09/10/16 14:02) SWELLING trimethoprim [From Bactrim] Allergy (Verified 09/10/16 14:02) SWELLING Home Medications: Home Meds Medication Instructions Recorded Confirmed Aspirin [Aspirin Chewable] 81 mg PO DAILY 07/05/15 07/20/16 Clopidogrel [Plavix] 75 mg PO DAILY 07/05/15 07/20/16 Docusate [Colace] 100 mg PO DAILY 07/05/15 07/20/16 Hydroxychloroquine Sulfate 400 mg PEG DAILY 07/05/15 07/20/16 [Plaquenil] buPROPion [Wellbutrin] 75 mg PO BID 07/05/15 07/20/16 azaTHIOprine [Azathioprine] 40 mg PO DAILY 04/15/16 07/20/16 Ascorbic Acid [Vitamin C 500 mg 500 mg PO DAILY 07/02/16 07/20/16 Tab] Atorvastatin [Lipitor] 40 mg PO DAILY 07/02/16 07/20/16 Magnesium Hydroxide [Milk Of 30 ml PEG HS PRN 07/02/16 07/20/16 Magnesia] Zinc 1,000 mg PO DAILY 07/02/16 07/20/16 Acetaminophen [Tylenol 325mg tab] 650 mg PEG Q6H PRN 07/20/16 07/20/16 Cholecalciferol [Vitamin D 1000 IU] 1,000 iu PEG DAILY 07/20/16 07/20/16 Ferrous Sulfate [Feosol Liq] 300 mg PEG BID 07/20/16 07/20/16 Levothyroxine [Synthroid] 50 mcg PEG ACB 07/20/16 07/20/16 OLANZapine [Zyprexa Zydis] 0.5 mg PEG HS 07/20/16 07/20/16 Pantoprazole [Protonix Susp] 40 mg PEG DAILY 07/20/16 07/20/16 Sertraline [Zoloft] 50 mg PEG DAILY 07/20/16 07/20/16 levETIRAcetam [Keppra] 500 mg PEG BID 07/20/16 07/20/16 Review of Systems - Review of Systems Systems not reviewed;Unavailable: Other (anxious, not oriented, unresponsive) Physical Exam Vital Signs Reviewed: Yes Vital Signs Temp Pulse Resp BP Pulse Ox 09/10/16 16:21 62 22 153/63 H 100 09/10/16 15:20 62 18 112/70 100 09/10/16 14:20 62 24 120/55 L 100 09/10/16 14:03 97.7 F 63 52 H 138/67 100 Temperature: Afebrile Blood Pressure: Normal Pulse: Regular Respiratory Rate: Normal Appearance: Positive for: Well-Appearing, Non-Toxic, Comfortable Pain Distress: None Mental Status: Positive for: Alert and Oriented X 3 - Systems Exam Head: Present: Atraumatic, Normocephalic Pupils: Present: PERRL Conjunctiva: Present: Normal, Other (pale conjunctiva) Mouth: Present: Moist Mucous Membranes Pharnyx: Present: Normal. No: ERYTHEMA Nose (External): Present: Atraumatic Neck: Present: Normal Range of Motion. No: Meningeal Signs, MIDLINE TENDERNESS Respiratory/Chest: Present: Clear to Auscultation, Good Air Exchange. No: Respiratory Distress, Accessory Muscle Use, Tachypneic Cardiovascular: Present: Regular Rate and Rhythm, Normal S1, S2. No: Murmurs Abdomen: Present: Normal Bowel Sounds. No: Tenderness, Distention, Peritoneal Signs Rectal: Present: Other (dark stool; guaic positive; ole Fish) Genitourinary/Pelvic Exam: Present: Normal External Genitalia Upper Extremity: Present: Normal Inspection. No: Cyanosis, Edema Lower Extremity: Present: Normal Inspection. No: Edema Neurological: Present: GCS=15, CN II-XII Intact, Speech Normal Skin: Present: Warm, Dry, Normal Color. No: Rashes Psychiatric: Present: Alert, Anxious. No: Oriented x 3 Medical Decision Making ED Course and Treatment: 09/10/16 14:45 Impression: An 81 year old female sent by doctor for blood transfusion, having anxiety. Differential Diagnosis included but are not limited to: Anemia from GI bleed; Anxious Plan: -- EKG -- chest xray -- Urinalysis -- labs -- Reassess and disposition Prior Visits: Notes and results from previous visits were reviewed. Patient last reported to emergency department on 07/20/16 for hydration and blood transfusion due to anemia and elevated potassium. Patient was admitted to telemetry observation. Patient was discharged on 08/13/16. Progress Notes: EKG: Ordered, reviewed, and independently interpreted the EKG. Rate : 61 BPM Rhythm : NSR Interpretation : No ST-segment elevations or depressions, no T-wave inversions, normal intervals. Comparison : No previous EKG for comparison. Chest xray: No active disease. 09/10/16 15:10 On reevaluation, patient no longer moaning or appearing anxious. 09/10/16 16:12 Lab notified me that patient takes irradiated blood and hemoglobin is 6. PMD Dr. Stack retired. Will paged Dr. Croft who is listed as a previous provider. 09/10/16 16:[address] Croft and he states he's not the primary. Since Dr. Aldridge is who family stated is the new primary I will admit to the Hospitalist. I called the niece, Mag Maya who is the POA. I explained to her that we will need a blood transfusion for her aunt and she agreed to the blood transfusion. She was explained risks vs benefits vs alternatives for blood transfusions. She agreed to the transfusion. Jerrod Dorado spoke to her on the telephone as well to confirm that she agreed to the transfusion. I also called the who agreed to the transfusion. Patient needs a new zuleta so it will be placed by DARLEEN Fish. Patient appears anxious. Xanax 0.5mg Per Pegtube will be ordered. Case was discussed with Dr. Shayla Gil who will accept patient on her service for Dr. Aldridge. - Critical Care Critical Care Minutes: 30 minutes - Lab Interpretations Lab Results: 09/10/16 14:30 09/10/16 14:30 Lab Results 09/10/16 14:30: Blood Type O POSITIVE, Antibody Screen Negative, Crossmatch See Detail, BBK History Checked Patient has bt 09/10/16 14:30: Sodium 130 L, Potassium 5.3 H, Chloride 97 L, Carbon Dioxide 25 , Anion Gap 13, BUN 80 H, Creatinine 1.3, Est GFR ( Amer) 47, Est GFR ( Non-Af Amer) 39, Random Glucose 90, Calcium 8.7, Phosphorus 5.0 H, Magnesium 1.8 , Total Bilirubin 0.5, AST 62 H, ALT 70 H, Alkaline Phosphatase 432 H, Lactate Dehydrogenase 425, Total Creatine Kinase 26 L, Troponin I < 0.01 D, Total Protein 6.3, Albumin 3.0, Globulin 3.3, Albumin/Globulin Ratio 0.9 L 09/10/16 14:30: PT 11.2, INR 1.04, APTT 31.0 H 09/10/16 14:30: WBC 3.4 L D, RBC 1.78 L, Hgb 6.0 L* D, Hct 17.5 L*, MCV 98.3, MCH 33.7, MCHC 34.3, RDW 16.1 H, Plt Count 178, MPV 8.9, Gran % 64.1, Lymph % ( Auto) 15.9 L, Glenn % (Auto) 6.2 H, Eos % (Auto) 12.9 H, Baso % (Auto) 0.9, Gran # 2.18, Lymph # 0.5 L, Glenn # 0.2, Eos # 0.4, Baso # 0.03 I have reviewed the lab results: Yes - RAD Interpretation Radiology Orders: 09/10/16 14:14 CHEST PORTABLE [RAD] Stat - EKG Interpretation Interpreted by ED Physician: Yes Type: 12 lead EKG - Medication Orders Current Medication Orders: Discontinued Medications Alprazolam (Xanax) 0.5 mg PO STAT STA PRN Reason: Protocol Stop: 09/10/16 16:26 Sodium Chloride (Sodium Chloride 0.9%) 500 mls @ 999 mls/hr IV .Q31M STA Stop: 09/10/16 16:27 - Scribe Statement The provider has reviewed the documentation as recorded by the Scribe Micky Barber All medical record entries made by the Scribe were at my direction and personally dictated by me. I have reviewed the chart and agree that the record accurately reflects my personal performance of the history, physical exam, medical decision making, and the department course for this patient. I have also personally directed, reviewed, and agree with the discharge instructions and disposition. Disposition/Present on Arrival - Present on Arrival Any Indicators Present on Arrival: Yes History of DVT/PE: No History of Uncontrolled Diabetes: No Urinary Catheter: Yes History of Decub. Ulcer: No History Surgical Site Infection Following: None - Disposition Have Diagnosis and Disposition been Completed?: Yes Diagnosis: Anemia, GI bleed Disposition: HOSPITALIZED Disposition Time: 16:49 Patient Plan: Admission Condition: FAIR Referrals: Nilesh Croft MD [Primary Care Provider] - Follow up with primary
[2016-09-10 15:28] LABS: ADD MANUAL DIFF? NO
[2016-09-10 15:36] LABS: BASO # 0.03 K/mm3 (0.0-2.0); BASO % 0.9 % (0.0-3.0); EOS # 0.4 (0.0-0.7); EOS % 12.9 % (1.5-5.0); GRAN # 2.18 (1.4-6.5); GRAN % 64.1 % (50.0-68.0); LYMPH # 0.5 (1.2-3.4); LYMPH % 15.9 % (22.0-35.0); MEAN CELL VOLUME 98.3 fL (80.0-105.0); MEAN CORPUSCULAR HEMOGLOBIN 33.7 pg (25.0-35.0); MEAN CORPUSCULAR HGB CONC 34.3 g/dl (31.0-37.0); MEAN PLATELET VOLUME 8.9 fl (7.0-11.0); MONO # 0.2 (0.1-0.6); MONO % 6.2 % (1.0-6.0); PLATELET COUNT 178 10^3/uL (120.0-450.0); RED CELL DISTRIBUTION WIDTH 16.1 % (11.5-14.5); WHITE BLOOD COUNT 3.4 10^3/ul (4.5-11.0)
[2016-09-10 15:44] LABS: ALB/GLOB RATIO 0.9 (1.1-1.8); ALKALINE PHOSPHATASE 432 U/L (38-133); ALT/SGPT 70 U/L (7-56); AST/SGOT 62 U/L (15-39); BILIRUBIN,TOTAL 0.5 mg/dL (0.2-1.3); BLOOD UREA NITROGEN 80 mg/dL (7-21); CALCIUM 8.7 mg/dL (8.4-10.5); CARBON DIOXIDE 25 mmol/L (21-33); CHLORIDE 97 mmol/L (98-107); GFR AFRICAN-AMERICAN 47; GLUCOSE,RANDOM 90 mg/dL (70-110); MAGNESIUM 1.8 mg/dL (1.7-2.2); POTASSIUM 5.3 mmol/L (3.6-5.0); SODIUM 130 mmol/L (132-148); TOTAL PROTEIN 6.3 g/dL (5.8-8.3)
[2016-09-10] MEDS ORDERED: Sodium Chloride 0.9% 500 ML IV STA (15:57)
[2016-09-10 16:01] LABS: INR 1.04 (0.93-1.08)
[2016-09-10 16:03] LABS: HEMATOCRIT 17.5 % (36.0-48.0)
[2016-09-10 16:14] LABS: TROPONIN I < 0.01 ng/mL
--- NOTE | 2016-09-10 16:48 | RAD ---
HISTORY: anxiety COMPARISON: 07/20/2016 FINDINGS: LUNGS: No active pulmonary disease. PLEURA: No significant pleural effusion identified, no pneumothorax apparent. CARDIOVASCULAR: Normal. OSSEOUS STRUCTURES: Sternal wires VISUALIZED UPPER ABDOMEN: Normal. OTHER FINDINGS: Moderate aortic tortuosity IMPRESSION: No active disease.
[2016-09-10] MEDS ORDERED: Sod Polystyrene Sulf 15 gm/60 ml Oral Susp PR STA (17:27)
[2016-09-10] MEDS ORDERED: Magnesium Hydroxide Susp 30 ml UD PEG PRN (17:35)
[2016-09-10 18:00] LABS: PH,URINE 7.5 (4.7-8.0); URINE BILIRUBIN NEGATIVE (NEGATIVE); URINE BLOOD LARGE (NEGATIVE); URINE GLUCOSE (UA) NEGATIVE (NEGATIVE); URINE KETONE NEGATIVE (NEGATIVE); URINE LEUKOCYTE ESTERASE LARGE Leu/uL (NEGATIVE); URINE PROTEIN TRACE mg/dL (<30 mg/dL); URINE UROBILINOGEN 0.2 E.U./dL (<1 E.U./dL)
[2016-09-10 18:02] LABS: URINE APPEARANCE CLEAR (CLEAR); URINE COLOR YELLOW (YELLOW)
[2016-09-10] MEDS ORDERED: Sod Polystyrene Sulf 15 gm/60 ml Oral Susp PEG STA (18:04)
[2016-09-10 18:15] LABS: URINE BACTERIA FEW (NEG); URINE EPITHELIAL CELLS 0 - 2 /hpf (0-5)
[2016-09-10] MEDS ORDERED: cefTRIAXone 1 gm 1 GM/100 ML BAG IVPB STA (18:21)
[2016-09-10 18:43] LABS: RETIC% 1.93 % (0.5-1.5)
[2016-09-10 19:31] LABS: IRON 59 ug/dL (45-180)
--- NOTE | 2016-09-10 20:17 | CP.PCM.HP ---
Addendum entered and electronically signed by Aissatou Michel DO 09/10/16 22:24: No Imuran/azathioprine is administered and is d/c Original Note: <Aissatou Michel - Last Filed: 09/10/16 21:58> History of Present Illness - History of Present Illness History of Present Illness: 81 yo F w/PMHx of CVA 2012, anemia, CKD, SLE, depression/anxiety/bipolar, CAD, CHF, HTN, hypothyroid, seizures, presents from physician's office for low hemoglobin and sent to ED for blood transfusion. Patient is awake but not responsive to questioning, so hx from ED note. PMHx: CVA 2012, anemia, CKD, SLE, depression, CAD, CHF, HTN, hypothyroid, seizures Psxhx: B/L knee replacement 1996, L buttock debridment 2015 Allergies: codeine, etodolac, iodine, tmp/smx medications: ASA 81, plavix 75, colace 100, plaquenil 400 qd, wellbutrin 75 mg po bid, azathioprine 40 qd, lipitor 40 po qd, milk of mag 30 ml peg hs prn, zinc 1000mg po qd, tyelnol 650 mg peg q6 prn, cholecalciferol 1000 iu peg daily , feosol 300 mg peg bid, synthroid 50 mcg peg acb, zyprexa 0.5 peg hs, protonix 40 peg qd, zoloft 50 mg peg, keppra 500mg peg bid. fxhx: unknown social: no etoh, smoking, illicits drugs, as per ED note. Present on Admission - Present on Admission Any Indicators Present on Admission: No Review of Systems - Review of Systems Systems not reviewed;Unavailable: Dementia Past Patient History - Infectious Disease Hx of Infectious Diseases: None - Tetanus Immunizations Tetanus Immunization: Unknown - Past Medical History & Family History Past Medical History?: Yes - Past Social History Smoking Status: Unknown If Ever Smoked - CARDIAC Hx Cardiac Disorders: Yes (cad) Hx Cardia Arrhythmia: Yes Hx Congestive Heart Failure: Yes Hx Hypertension: Yes Hx Pacemaker: No Other/Comment: valve replacement - PULMONARY Hx Respiratory Disorders: No - NEUROLOGICAL Hx Neurological Disorder: Yes HX Cerebrovascular Accident: Yes Hx Dementia: Yes Hx Seizures: Yes Hx Transient Ischemic Attacks (TIA): Yes (2012) - HEENT Hx HEENT Problems: No - RENAL Hx Chronic Kidney Disease: Yes - ENDOCRINE/METABOLIC Hx Endocrine Disorders: Yes Hx Hypothyroidism: Yes Hx Systemic Lupus Erythematosus: Yes - HEMATOLOGICAL/ONCOLOGICAL Hx Blood Disorders: Yes Hx Shingles: Yes Other/Comment: SLE - INTEGUMENTARY Hx Dermatological Problems: Yes Other/Comment: sacral decubitus ulcer-STAGE 4. BILATERAL ARMS EDEMA +2 MORE TO LEFT. GENERALIZED SKIN DISCOLORATION/GRAYISH TO BROWNSIH IN COLOR,SKIN DRYNESS, FLAKY SKIN MAINLY TO UPPER BACK. THICKEND TOENAILS,WITH CALLOUSED POST PART. - MUSCULOSKELETAL/RHEUMATOLOGICAL Hx Arthritis: Yes Hx Falls: Yes (past) - GASTROINTESTINAL Hx Gastrointestinal Disorders: Yes Hx Gall Bladder Disease: Yes (1996) - GENITOURINARY/GYNECOLOGICAL Hx Genitourinary Disorders: Yes Hx Incontinence: Yes (urine and stool) Hx Urinary Tract Infection: Yes - PSYCHIATRIC Hx Anxiety: Yes Hx Bipolar Disorder: Yes Hx Depression: Yes Hx Substance Use: (UNKNOWN) - SURGICAL HISTORY Hx Cholecystectomy: Yes (1996) Hx Orthopedic Surgery: Yes (b/l knee replacement) Other/Comment: left buttock debridement 2016, picc - ANESTHESIA Hx Anesthesia Reactions: No Hx Malignant Hyperthermia: No Meds Allergies/Adverse Reactions: Allergies Allergy/AdvReac Type Severity Reaction Status Date / Time codeine Allergy RASH Verified 09/10/16 14:02 etodolac [From Lodine] Allergy RASH Verified 09/10/16 14:02 iodine Allergy ANAPHYLAXIS Verified 09/10/16 14:02 sulfamethoxazole Allergy SWELLING Verified 09/10/16 14:02 [From Bactrim] trimethoprim [From Bactrim] Allergy SWELLING Verified 09/10/16 14:02 Physical Exam - Constitutional Appears: In Acute Distress, Unkempt - Head Exam Head Exam: ATRAUMATIC, NORMOCEPHALIC - Eye Exam Eye Exam: EOMI, Normal appearance - Respiratory Exam Respiratory Exam: Clear to Auscultation Bilateral, NORMAL BREATHING PATTERN - Cardiovascular Exam Cardiovascular Exam: Bradycardia, +S1, +S2 - GI/Abdominal Exam GI & Abdominal Exam: Soft. absent: Tenderness - Exam External exam: Lesions Additional comments: L buttock sacral decubitus ulcer, stage III - Extremities Exam Extremities exam: Positive for: pedal pulses present. Negative for: pedal edema - Back Exam Back exam: absent: CVA tenderness (L), CVA tenderness (R) - Neurological Exam Neurological exam: Alert - Psychiatric Exam Psychiatric exam: Agitated, Anxious - Skin Skin Exam: Pallor, Warm Results - Vital Signs Recent Vital Signs: Last Vital Signs Temp 97.5 F L 09/10/16 19:46 Pulse 54 L 09/10/16 19:46 Resp 16 09/10/16 19:46 BP 125/57 L 09/10/16 19:46 Pulse Ox 100 09/10/16 18:42 - Labs Result Diagrams: 09/10/16 14:30 09/10/16 14:30 Labs: Laboratory Results - last 24 hr 09/10/16 09/10/16 09/10/16 17:50 18:30 18:35 Retic Count 1.93 H Iron TIBC % Saturation Urine Color Yellow Urine Appearance Clear Urine pH 7.5 Ur Specific [place] 1.010 Urine Protein Trace H Urine Glucose (UA) Negative Urine Ketones Negative Urine Blood Large H Urine Nitrate Negative Urine Bilirubin Negative Urine Urobilinogen 0.2 Ur Leukocyte Esterase Large H Urine RBC 1 - 3 Urine WBC 10 - 15 Ur Epithelial Cells 0 - 2 Urine Bacteria Few Urine Opiates Screen Negative Urine Methadone Screen Negative Ur Barbiturates Screen Negative Ur Phencyclidine Scrn Negative Ur Amphetamines Screen Negative U Benzodiazepines Scrn Negative U Oth Cocaine Metabols Negative U Cannabinoids Screen Negative 09/10/16 18:35 Retic Count Iron 59 TIBC 252 L % Saturation 23 Urine Color Urine Appearance Urine pH Ur Specific [place] Urine Protein Urine Glucose (UA) Urine Ketones Urine Blood Urine Nitrate Urine Bilirubin Urine Urobilinogen Ur Leukocyte Esterase Urine RBC Urine WBC Ur Epithelial Cells Urine Bacteria Urine Opiates Screen Urine Methadone Screen Ur Barbiturates Screen Ur Phencyclidine Scrn Ur Amphetamines Screen U Benzodiazepines Scrn U Oth Cocaine Metabols U Cannabinoids Screen Assessment & Plan - Assessment and Plan (Free Text) Plan: 81 yo F w/PMHx of CVA 2012, anemia, SLE, depression/bipolar/anxiety, CAD, hypothyroid, seizures, presents from physician's office for low hemoglobin and sent to ED for blood transfusion. Anemia w/ hemoglobin of 6: transfusion of 2 packs of irradiated PRBC today H/H monitor Telemetry admission GI consult appreciated Hyperkalemia of 5.3: kayexalate 15 PEG ordered EKG with some T wave peaking but not other abnormalities monitor CAD: ASA 81 and plavix 75 mg po qd on hold due to current anemia lipitor 40 qd hypothyroid: synthroid 50 mcg peg acb colace 100mg peg qd depression/bipolar/anxiety: buproprion 75 bid zyprexa 5 mg peg hs zoloft 50 mg peg qd SLE: azathioprine 40 mg peg qd plaquenil 400 mg peg qd seizures: Keppra 500 mg peg bid PPx measures: protonix scd Tylenol <Matias Jovel A - Last Filed: 09/11/16 06:49> Results - Vital Signs Recent Vital Signs: Last Vital Signs Temp 97.9 F 09/11/16 06:00 Pulse 60 09/11/16 06:00 Resp 19 09/11/16 06:00 BP 118/46 L 09/11/16 06:00 Pulse Ox 98 09/11/16 06:00 - Labs Result Diagrams: 09/10/16 14:30 09/10/16 14:30 Labs: Laboratory Results - last 24 hr 09/10/16 09/10/16 09/10/16 17:50 18:30 18:35 Retic Count 1.93 H Iron TIBC % Saturation Ferritin Vitamin B12 Folate Urine Color Yellow Urine Appearance Clear Urine pH 7.5 Ur Specific [place] 1.010 Urine Protein Trace H Urine Glucose (UA) Negative Urine Ketones Negative Urine Blood Large H Urine Nitrate Negative Urine Bilirubin Negative Urine Urobilinogen 0.2 Ur Leukocyte Esterase Large H Urine RBC 1 - 3 Urine WBC 10 - 15 Ur Epithelial Cells 0 - 2 Urine Bacteria Few Urine Opiates Screen Negative Urine Methadone Screen Negative Ur Barbiturates Screen Negative Ur Phencyclidine Scrn Negative Ur Amphetamines Screen Negative U Benzodiazepines Scrn Negative U Oth Cocaine Metabols Negative U Cannabinoids Screen Negative 09/10/16 09/10/16 18:35 18:35 Retic Count Iron 59 TIBC 252 L % Saturation 23 Ferritin 1730.0 Vitamin B12 858 Folate > 20.0 Urine Color Urine Appearance Urine pH Ur Specific [place] Urine Protein Urine Glucose (UA) Urine Ketones Urine Blood Urine Nitrate Urine Bilirubin Urine Urobilinogen Ur Leukocyte Esterase Urine RBC Urine WBC Ur Epithelial Cells Urine Bacteria Urine Opiates Screen Urine Methadone Screen Ur Barbiturates Screen Ur Phencyclidine Scrn Ur Amphetamines Screen U Benzodiazepines Scrn U Oth Cocaine Metabols U Cannabinoids Screen Attending/Attestation - Attestation I have personally seen and examined this patient.: Yes I have fully participated in the care of the patient.: Yes I have reviewed all pertinent clinical information: Yes Notes (Text): 09/10/16 81 year old female with past medical history of CVA, chronic anemia, SLE, depression, bipolar, anxiety, CAD and hypothyroidism who was sent by pmd for anemia. In ER she was found to have hemoglobin on 6.0. Anemia workup including iron studies, B12 and folate are ordered. Hematology and GI consultations are requested. Will transfuse 2 units and repeat H/H. She also has mild hypokalemia for which she will receive kayexalate. Will repeat labs in AM. Continue to monitor creatinine closely for CKD. Resume hold medications for hypothyroidism, SLE, seizure, bipolar, depression, anxiety and CAD, except aspirin and plavix which are on hold for now. Resume tube feeds and continue with wound care. Matias Jovel MD Hospitalist.
[2016-09-10] MEDS ORDERED: OLANZapine 5 mg Disintegrating Tab PEG SCH (22:00)
[2016-09-10] MEDS ORDERED: Acetaminophen 650mg/20.3ml solution UD PEG PRN (22:15)
[2016-09-10 22:52] LABS: FOLATE > 20.0 ng/mL
[2016-09-10] MEDS: OLANZapine 5 mg Disintegrating Tab PEG SCH (23:45)
[2016-09-10] MEDS: Ferrous Sulfate 300 mg/5 mL Liq UD PEG SCH (23:46)
[2016-09-10] MEDS: levETIRAcetam 500 mg/5ml UD cups PEG SCH (23:47)
[2016-09-11 08:07] LABS: ADD MANUAL DIFF? NO
--- NOTE | 2016-09-11 08:09 | CARD ---
APPROVED REPORT EKG Measurement Heart [id number] <Conclusion> Normal sinus rhythm Peaked T wave V 4
[2016-09-11 08:17] LABS: BASO # 0.04 K/mm3 (0.0-2.0); EOS # 0.5 (0.0-0.7); EOS % 12.3 % (1.5-5.0); GRAN # 2.47 (1.4-6.5); GRAN % 64.7 % (50.0-68.0); HEMATOCRIT 25.1 % (36.0-48.0); LYMPH # 0.6 (1.2-3.4); LYMPH % 16.2 % (22.0-35.0); MEAN CELL VOLUME 94.7 fL (80.0-105.0); MEAN CORPUSCULAR HEMOGLOBIN 32.8 pg (25.0-35.0); MEAN CORPUSCULAR HGB CONC 34.7 g/dl (31.0-37.0); MONO # 0.2 (0.1-0.6); MONO % 5.8 % (1.0-6.0); PLATELET COUNT 156 10^3/uL (120.0-450.0); RED CELL DISTRIBUTION WIDTH 18.1 % (11.5-14.5); WHITE BLOOD COUNT 3.8 10^3/ul (4.5-11.0)
[2016-09-11 08:36] LABS: ALB/GLOB RATIO 0.9 (1.1-1.8); BILIRUBIN,TOTAL 0.6 mg/dL (0.2-1.3); TOTAL PROTEIN 6.4 g/dL (5.8-8.3)
[2016-09-11] MEDS: Levothyroxine 50 MCG TAB PEG SCH (08:45)
[2016-09-11] MEDS: Pantoprazole 40 mg Susp UD PEG SCH (09:01)
[2016-09-11] MEDS: Ferrous Sulfate 300 mg/5 mL Liq UD PEG SCH ×2 (09:02→17:39)
[2016-09-11] MEDS: levETIRAcetam 500 mg/5ml UD cups PEG SCH (09:06)
[2016-09-11] MEDS: cefTRIAXone 1 gm 1 GM/100 ML BAG IVPB SCH (13:32)
--- NOTE | 2016-09-11 13:34 | CP.PCM.PN ---
<Aissatou Michel - Last Filed: 09/11/16 16:14> Subjective - Date & Time of Evaluation Date of Evaluation: 09/11/16 Time of Evaluation: 07:30 - Subjective Subjective: Pt seen and evaluated at bedside. Denies abdominal pain. Afebrile overnight. Objective - Vital Signs/Intake and Output Vital Signs (last 24 hours): Temp Pulse Resp BP Pulse Ox 98 F 64 17 129/89 98 09/11/16 12:48 09/11/16 12:48 09/11/16 12:48 09/11/16 12:48 09/11/16 06:00 Intake and Output: 09/11/16 09/11/16 06:59 18:59 Intake Total 1252 Output Total 1475 Balance -223 - Medications Medications: Current Medications Acetaminophen (Tylenol 650mg/20.3ml Solution Ud) 650 mg PEG Q6H PRN PRN Reason: Fever >100.4 F Ascorbic Acid (Vitamin C 500 Mg Tab) 500 mg PEG DAILY [facility] Last Admin: 09/11/16 09:01 Dose: 500 mg Atorvastatin Calcium (Lipitor) 40 mg PEG DAILY [facility] Last Admin: 09/11/16 09:01 Dose: 40 mg Bupropion HCl (Wellbutrin) 75 mg PEG BID [facility] Last Admin: 09/10/16 23:44 Dose: 75 mg Docusate Sodium (Colace Liquid) 100 mg PEG DAILY [facility] Ferrous Sulfate (Feosol Liq) 300 mg PEG BID [facility] Last Admin: 09/11/16 09:02 Dose: 300 mg Ceftriaxone Sodium (Rocephin 1 Gram Ivpb) 1 gm in 100 mls @ 100 mls/hr IVPB DAILY [facility] PRN Reason: Protocol Levetiracetam (Keppra) 500 mg PEG DAILY [facility] Levothyroxine Sodium (Synthroid) 50 mcg PEG ACB [facility] Magnesium Hydroxide (Milk Of Magnesia) 30 ml PEG HS PRN PRN Reason: Constipation Olanzapine (Zyprexa Zydis) 5 mg PEG HS [facility] PRN Reason: Protocol Last Admin: 09/10/16 23:45 Dose: 5 mg Pantoprazole Sodium (Protonix Susp) 40 mg PEG DAILY [facility] Last Admin: 09/11/16 09:01 Dose: 40 mg Sertraline HCl (Zoloft) 50 mg JT DAILY [facility] Last Admin: 09/11/16 09:01 Dose: 50 mg - Labs Labs: 09/11/16 07:40 09/11/16 07:40 PT 11.2 Seconds (9.9-11.8) 09/10/16 14:30 INR 1.04 (0.93-1.08) 09/10/16 14:30 APTT 31.0 Seconds (23.7-30.8) H 09/10/16 14:30 - Constitutional Appears: No Acute Distress - Head Exam Head Exam: ATRAUMATIC, NORMOCEPHALIC - Eye Exam Eye Exam: EOMI, Normal appearance - Respiratory Exam Respiratory Exam: Clear to Ausculation Bilateral, NORMAL BREATHING PATTERN - Cardiovascular Exam Cardiovascular Exam: +S1, +S2. absent: Tachycardia - GI/Abdominal Exam GI & Abdominal Exam: Soft. absent: Tenderness - Exam External exam: absent: Erythema, Lacerations - Extremities Exam Extremities Exam: absent: Pedal Edema, Tenderness - Neurological Exam Neurological Exam: Alert, Awake - Skin Skin Exam: Pallor, Warm Additional comments: L buttock decubitus ulcer Assessment and Plan - Assessment and Plan (Free Text) Plan: 81 yo F w/PMHx of CVA 2013, anemia, SLE, depression/bipolar/anxiety, CAD, hypothyroid, seizures, presents from physician's office for low hemoglobin and sent to ED for blood transfusion. Anemia w/ initial hemoglobin of 6: transfusion of 2 packs of irradiated PRBC yesterday, current hemoglobin is 8.7 H/H monitor Telemetry admission GI consult appreciated Hyperkalemia of 5.3: kayexalate 15 PEG administered yesterday EKG with some T wave peaking but not other abnormalities monitor CAD: ASA 81 and plavix 75 mg po qd on hold due to anemia lipitor 40 qd hypothyroid: synthroid 50 mcg peg acb colace 100mg peg qd depression/bipolar/anxiety: buproprion 75 bid zyprexa 5 mg peg hs zoloft 50 mg peg qd SLE: plaquenil 400 mg peg qd seizures: Keppra 500 mg peg qd urinary cx positive for g-rods: ceftriaxone IV PPx measures: protonix scd Tylenol <Matias Jovel A - Last Filed: 09/11/16 16:28> Objective - Vital Signs/Intake and Output Vital Signs (last 24 hours): Temp Pulse Resp BP Pulse Ox 98 F 56 L 17 129/89 98 09/11/16 12:48 09/11/16 14:00 09/11/16 12:48 09/11/16 12:48 09/11/16 06:00 Intake and Output: 09/11/16 09/11/16 06:59 18:59 Intake Total 1252 Output Total 1475 Balance -223 - Medications Medications: Current Medications Acetaminophen (Tylenol 650mg/20.3ml Solution Ud) 650 mg PEG Q6H PRN PRN Reason: Fever >100.4 F Ascorbic Acid (Vitamin C 500 Mg Tab) 500 mg PEG DAILY [facility] Last Admin: 09/11/16 09:01 Dose: 500 mg Atorvastatin Calcium (Lipitor) 40 mg PEG DAILY [facility] Last Admin: 09/11/16 09:01 Dose: 40 mg Bupropion HCl (Wellbutrin) 75 mg PEG BID [facility] Last Admin: 09/11/16 13:37 Dose: 75 mg Docusate Sodium (Colace Liquid) 100 mg PEG DAILY [facility] Ferrous Sulfate (Feosol Liq) 300 mg PEG BID [facility] Last Admin: 09/11/16 09:02 Dose: 300 mg Ceftriaxone Sodium (Rocephin 1 Gram Ivpb) 1 gm in 100 mls @ 100 mls/hr IVPB DAILY [facility] PRN Reason: Protocol Last Admin: 09/11/16 13:32 Dose: 100 mls/hr Levetiracetam (Keppra) 500 mg PEG DAILY [facility] Levothyroxine Sodium (Synthroid) 50 mcg PEG ACB [facility] Last Admin: 09/11/16 08:45 Dose: 50 mcg Magnesium Hydroxide (Milk Of Magnesia) 30 ml PEG HS PRN PRN Reason: Constipation Olanzapine (Zyprexa Zydis) 5 mg PEG HS [facility] PRN Reason: Protocol Last Admin: 09/10/16 23:45 Dose: 5 mg Pantoprazole Sodium (Protonix Susp) 40 mg PEG DAILY [facility] Last Admin: 09/11/16 09:01 Dose: 40 mg Sertraline HCl (Zoloft) 50 mg JT DAILY [facility] Last Admin: 09/11/16 09:01 Dose: 50 mg - Labs Labs: 09/11/16 07:40 09/11/16 07:40 PT 11.2 Seconds (9.9-11.8) 09/10/16 14:30 INR 1.04 (0.93-1.08) 09/10/16 14:30 APTT 31.0 Seconds (23.7-30.8) H 09/10/16 14:30 Attending/Attestation - Attestation I have personally seen and examined this patient.: Yes I have fully participated in the care of the patient.: Yes I have reviewed all pertinent clinical information, including history, physical exam and plan: Yes Notes (Text): 09/11/16 16:25 81 year old female with past medical history of CVA, chronic anemia, SLE, depression, bipolar, anxiety, CAD and hypothyroidism who was sent by pmd for anemia with hemoglobin of 6.0. Anemia workup was reviewed as above. She received 2 units of prbc with improvement of hemoglobin to 8.7 today. Hematology consultation is pending. She was seen by GI today who has ordered for abdominal ultrasound. Will follow up with GI/hematology recommendations and continue to monitor cbc closely. Hyperkalemia has improved today. Creatinine is also stable for CKD. Continue with home medications with exception of aspirin/plavix for now in view of anemia. Continue with tube feeds and wound care. Matias Jovel MD Hospitalist.
--- NOTE | 2016-09-11 16:01 | CON ---
DATE: 09/11/2016 GI CONSULT REQUEST FOR CONSULT: For GI bleed/anemia. HISTORY OF PRESENT ILLNESS: This is an 81-year-old female with a past medical history of CVA, anemia , SLE, chronic kidney disease, came from primary physician's office with low hemoglobin. The patient is a poor historian, and history was obtained from medical staff and the patient's chart. The patient this morning is awake and alert, answers simple questions. No reports of any nausea, vom iting, abdominal pain, hematemesis, or bleeding per rectum. The patient on admission came with hemoglobin of 6.0. She had 2 units of packed RBC. It is noted that the patient had an endoscopy by Dr. Lundberg on 07/05/2016 for dysphagia, malnutrition. T he patient had a PEG tube placement. During the exam, the esophagus, stomach, and duodenum were norm al, as well as the cardiac and gastric fundus. There were no acute findings. The patient has history of coronary artery disease as well. The patient is on Plavix and aspirin, bu t is currently on hold. PAST MEDICAL HISTORY: As stated above, CVA, anemia, chronic kidney disease, SLE, depression, anxiety , bipolar disorder, CHF, coronary artery disease, hypertension, hypothyroidism, seizure, dysphagia, s tatus post PEG tube 07/14/2016. Valve replacement, history of dementia. PAST SURGICAL HISTORY: Bilateral knee replacement. She also had a left buttock debridement. Her re cent endoscopy was done on ____ for EGD PEG. It was a normal exam. SOCIAL HISTORY: No history of smoking, EtOH, or drugs. FAMILY HISTORY: Unknown. ALLERGIES: CODEINE, ETODOLAC, IODINE, TMP/SMX. MEDICATIONS: Reviewed as per MAR, significant for aspirin and Plavix, Plaquenil. REVIEW OF SYSTEMS: Systems reviewed with positive findings. See HPI. VITAL SIGNS: Temperature is 97.9, blood pressure 118/46, pulse 60, respirations 19, 98 on room air. LABORATORY DATA: WBC is 3.8. H and H are 8.7 and 25.1. Platelets are 156. Her PT is 11.2. INR is 1.04. PTT is 31.0. Sodium 136. K is 5.0. BUN 75. Creatinine is 1.2. Iron is 59. TIBC is low a t 252. Ferritin is 1730. LDH is 425. Percent saturation is 23. Total bilirubin is 0.6, AST 49, AL T 60. Alk phos is 376. Her levels are improved compared to yesterday. Vitamin B12 is 858. She had a chest x-ray on admission, and that was negative for any active disease. The patient is noted to have a CT scan from 07/04/2016 without any contrast noting bilateral pleural ef fusions, but the bowel showed evidence of wall thickening in the right and proximal transverse colon, clinically looks like colitis, and saw diverticulosis. No acute diverticulitis. PHYSICAL EXAMINATION: HEENT: Sclerae are anicteric. NECK: Supple. CARDIAC: S1, S2. LUNGS: Lung sounds with decreased breath sounds, but good air entry. No rales or wheeze. ABDOMEN: With bowel sounds, soft, nontender. Positive PEG tube insertion site with no erythema or d rainage. EXTREMITIES: Lower extremities with positive pedal pulses, looks like trace edema. Has some grayish discoloration on bilateral lower extremities, but it is warm to touch. NEUROLOGIC: The patient is awake and alert. Answers simple questions as best. ASSESSMENT: An 81-year-old female with past medical history of cerebrovascular accident, anemia, sys temic lupus erythematosus, coronary artery disease, here with anemia, status post 2 units of packed R BC, rule out any gastrointestinal bleed, angiodysplasia, malignancy. The patient has history of karly nary artery disease, bipolar disease, depression, valve replacement, dementia. She is noted to have elevated liver enzymes as well. The patient is currently off her aspirin and Plavix. We will request stool for C. diff. She is on iron supplements, on stool softener, likely has urinary tract infection. She is on ceftriaxone. We will continue GI prophylaxis, Protonix. In view of prabhu vated liver enzymes, we will request for hepatitis panel and also abdominal ultrasound. Thank you for this consult and for allowing us to participate in your patient's care. The patient wa s seen and case discussed with Dr. Garces. In view of severe anemia, the patient would benefit fro m endoscopic workup. She did have recent EGD. We will discuss. The patient was seen and case discu ssed with Dr. Garces. Nataliia CARLSON cc: [id number] TT: 09/11/2016 13:09:41 Confirmation # [id number] Dictation # [id number] briseida 09/11/2016 14:41:55
--- NOTE | 2016-09-11 21:07 | CON ---
DATE: 09/11/2016 This is the patient's hospital consult on the telemetry floor. For Dr. Peguero. CHIEF COMPLAINT: Abnormal labs, brought through the Emergency Room. HISTORY OF PRESENT ILLNESS: The patient is an 81-year-old female with a history of dementia, CVA, de pression, SLE, a patient of Dr. Rashad Gomes until recently, with an anxiety attack as she was about to get a blood transfusion reported as per Emergency Room personnel, admitted yesterday. The patient was with her at that time with the patient having an anxiety attack at that time with the pa tient being seen now on the telemetry floor in no acute distress. ALLERGIES: CODEINE, IODINE, SULFA, BACTRIM, ETODOLAC. PAST MEDICAL HISTORY: Significant for systemic lupus, lupus cerebritis, depression, multi-infarct de mentia, ASCVD, status post CABG, history of psychiatric admissions for altered mental status with her lupus controlled by Imuran, azathioprine, as per Dr. Rashad Gomes's note, on 07/20/2016, was referred to these records. The patient is known to have a G-tube with recent admission for elevated potassiu ms in the past. 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 Also extensive orthopedic surgery for ar thritis. FAMILY HISTORY AND SOCIAL HISTORY: Nonsmoker, nonethanolic, otherwise noncontributory. REVIEW OF SYSTEMS: Essentially negative to questioning except as above. OBJECTIVE: PHYSICAL EXAMINATION: VITAL SIGNS: Today, temperature 98.6, pulse 69, respirations 18, blood pressure 120/57 with a pulse o x of 98%. HEENT: Unremarkable. NECK: Supple. HEART: Regular rate, occasional ectopic beat. LUNGS: Clear. ABDOMEN: Soft, nontender. EXTREMITIES: No edema. SKIN: Warm, dry and clear except for a decubitus on the left buttock, stage 3? LABORATORY DATA: Done on admission yesterday. White blood cell count 3.4, now 3.8, hemoglobin 6.0, now 8.7 status post 2 units of packed red blood cells. Her hematocrit was 17.5 yesterday, it is 25.1 today. Platelet count of 156,000. INR of 1.04. Her chem panel showed a potassium of 5.3, it is 5. 0 today. BUN of 75, creatinine of 1.2. Iron percent saturation is 23%. AST of 49, ALT of 60. Urinal ysis showed large amount of blood, large leukocyte esterase. Her urine grew out gram-negative rods, greater than 100,000 colonies. Blood cultures were negative. The patient had a chest x-ray done yes terday. It was read as no active disease. She had an EKG done yesterday, it was read as normal sinus rhythm. ADDENDUM: The patient, as per Dr. Gomes reports in his notes, saying they should increase I believe wasting away over the past 2 months with a G-tube placed with antral hydration and nutrition given, possibly related to her depression. On physical examination, she does have a G-tube in the hi d abdomen. ASSESSMENT: Severe anemia, rule out gastrointestinal bleed, with severe anemia, status post transfus ion, hyperkalemia, arteriosclerotic cardiovascular disease, history of bipolar disorder, depression, systemic lupus, history of seizure disorder, hypothyroidism, percutaneous endoscopic gastrostomy depe ndent nutrition, dementia, history of cerebrovascular accident, decubitus ulcer. PLAN: After conversation with Dr. Peguero, we will continue present medical regimen. We will contin ue the present plan as per Dr. Garces and Dr. Jovel. Her labs are to be checked in the morning wit h consideration for further transfusions as indicated with nutrition to continue via her PEG with her anti-seizure medication and her thyroid medication continued. We will check a TSH if this was not d one with consideration of restarting her Imuran and azathioprine with Plaquenil? as per Dr. Jovel. T dominguez prognosis for this patient is guarded. Ronnie Lemons MD cc: [id number] TT: 09/11/2016 21:05:50 Confirmation # [id number] Dictation # [id number] clover
[2016-09-11] MEDS: OLANZapine 5 mg Disintegrating Tab PEG SCH (21:54)
[2016-09-12 06:38] LABS: ADD MANUAL DIFF? NO
[2016-09-12 06:58] LABS: ALB/GLOB RATIO 0.9 (1.1-1.8); BILIRUBIN,TOTAL 0.4 mg/dL (0.2-1.3); CALCIUM 8.6 mg/dL (8.4-10.5); POTASSIUM 4.9 mmol/L (3.6-5.0)
[2016-09-12 07:17] LABS: BASO # 0.02 K/mm3 (0.0-2.0); BASO % 0.5 % (0.0-3.0); EOS # 0.4 (0.0-0.7); EOS % 8.3 % (1.5-5.0); GRAN # 2.96 (1.4-6.5); GRAN % 70.4 % (50.0-68.0); HEMATOCRIT 24.8 % (36.0-48.0); LYMPH # 0.6 (1.2-3.4); LYMPH % 14.8 % (22.0-35.0); MEAN CELL VOLUME 95.4 fL (80.0-105.0); MEAN CORPUSCULAR HEMOGLOBIN 32.7 pg (25.0-35.0); MEAN CORPUSCULAR HGB CONC 34.3 g/dl (31.0-37.0); MEAN PLATELET VOLUME 8.8 fl (7.0-11.0); MONO # 0.3 (0.1-0.6); PLATELET COUNT 172 10^3/uL (120.0-450.0); RED CELL DISTRIBUTION WIDTH 18.2 % (11.5-14.5); WHITE BLOOD COUNT 4.2 10^3/ul (4.5-11.0)
--- NOTE | 2016-09-12 08:09 | CON ---
DATE: 09/11/2016 ADDENDUM The patient was seen and evaluated earlier. This is an addendum to the GI consultation report dictat ed by Nataliia Vincent NP. The patient is admitted with severe anemia, no obvious melena or bright red b lood per rectum, is tolerating the G-tube feeding. The patient did have an endoscopy in 07/2016. [place] d a feeding tube placement. In view of the severe anemia, the concern is about multiple comorbiditie s and the concern is about doing a colonoscopy. We will discuss with the patient's family and also t he primary care team, the hospitalist, regarding the colonoscopic evaluation of this patient with mul tiple comorbidities. Thank you very much for allowing me to participate in the care of the patient. Nancy Garces MD cc: [id number] TT: 09/12/2016 01:10:35 Confirmation # [id number] Dictation # [id number] mn
[2016-09-12] MEDS: cefTRIAXone 1 gm 1 GM/100 ML BAG IVPB SCH (10:16)
[2016-09-12] MEDS: Ferrous Sulfate 300 mg/5 mL Liq UD PEG SCH ×2 (11:12→15:05)
--- NOTE | 2016-09-12 12:09 | PN ---
DATE: 09/12/2016 GI FOLLOWUP NOTE Seen and examined at the bedside earlier today. The patient is n.p.o. waiting to go for abdominal ul trasound. No reports of any overt GI bleed. The patient is reported to be tolerating feedings which are going at 55 mL an hour. No reports of any diarrhea or bleeding per rectum. VITAL SIGNS: Temperature is 98.8. Blood pressure is 124/71, pulse 72, respirations 20, 99 on nasal cannula. LABORATORY DATA: WBC is 4.2. H and H are 8.5 and 24.8. Platelets are 172. Sodium is 141. K is 4. 9. BUN is 70. Creatinine is 1.4. Total bilirubin is 0.4, AST 62, ALT 80, alkaline phos is 491. PHYSICAL EXAMINATION: HEENT: Sclerae are anicteric. NECK: Supple. CARDIAC: S1, S2. LUNGS: Decreased breath sounds. No rales or wheeze. ABDOMEN: With bowel sounds, soft. Mild tenderness to left upper quadrant. No rebound or guarding. Pain on palpation. EXTREMITIES: Negative edema. No calf tenderness. ASSESSMENT: An 81-year-old female with past medical history of cerebrovascular accident, anemia, sys temic lupus erythematosus, bipolar disorder, coronary artery disease, seizures, found to have severe anemia. She is status post blood transfusion of 2 units. She is also noted to have elevated liver e nzymes, rule out if this is medication-induced or hepatic congestion. The patient is on Plaquenil an d Keppra. The patient also with urinary tract infection, positive for gram-negative rods. PLAN: Follow up the abdominal ultrasound, and trend LFTs will be requested for hepatitis panel. Con tinue the PEG feedings as tolerated. Monitor H and H for any overt GI bleed. The patient is also receiving iron supplements. We will continue to follow. The patient was seen an d case discussed with Dr. Garces. Nataliia Melisa ALDO cc: [id number] TT: 09/12/2016 12:08:49 Confirmation # [id number] Dictation # [id number] briseida
--- NOTE | 2016-09-12 14:59 | CP.PCM.PN ---
<Aissatou Michel - Last Filed: 09/12/16 15:08> Subjective - Date & Time of Evaluation Date of Evaluation: 09/12/16 Time of Evaluation: 07:40 - Subjective Subjective: Patient seen and evaluated at bedside. Pt denies pain, otherwise not verbally responsive. Afebrile overnight. Objective - Vital Signs/Intake and Output Vital Signs (last 24 hours): Temp Pulse Resp BP Pulse Ox 97.1 F L 53 L 19 116/53 L 99 09/12/16 12:00 09/12/16 13:22 09/12/16 12:00 09/12/16 12:00 09/12/16 00:01 Intake and Output: 09/12/16 09/12/16 06:59 18:59 Intake Total 720 Output Total 2800 Balance -2080 - Medications Medications: Current Medications Acetaminophen (Tylenol 650mg/20.3ml Solution Ud) 650 mg PEG Q6H PRN PRN Reason: Fever >100.4 F Ascorbic Acid (Vitamin C 500 Mg Tab) 500 mg PEG DAILY [facility] Last Admin: 09/11/16 09:01 Dose: 500 mg Atorvastatin Calcium (Lipitor) 40 mg PEG DAILY [facility] Last Admin: 09/11/16 09:01 Dose: 40 mg Bupropion HCl (Wellbutrin) 75 mg PEG BID [facility] Last Admin: 09/12/16 11:12 Dose: Not Given Docusate Sodium (Colace Liquid) 100 mg PEG DAILY [facility] Ferrous Sulfate (Feosol Liq) 300 mg PEG BID [facility] Last Admin: 09/12/16 11:12 Dose: Not Given Ceftriaxone Sodium (Rocephin 1 Gram Ivpb) 1 gm in 100 mls @ 100 mls/hr IVPB DAILY [facility] PRN Reason: Protocol Last Admin: 09/12/16 10:16 Dose: 100 mls/hr Levetiracetam (Keppra) 500 mg PEG DAILY [facility] Levothyroxine Sodium (Synthroid) 50 mcg PEG ACB [facility] Last Admin: 09/11/16 08:45 Dose: 50 mcg Magnesium Hydroxide (Milk Of Magnesia) 30 ml PEG HS PRN PRN Reason: Constipation Olanzapine (Zyprexa Zydis) 5 mg PEG HS KARO PRN Reason: Protocol Last Admin: 09/11/16 21:54 Dose: 5 mg Pantoprazole Sodium (Protonix Susp) 40 mg PEG DAILY [facility] Last Admin: 09/11/16 09:01 Dose: 40 mg Sertraline HCl (Zoloft) 50 mg JT DAILY [facility] Last Admin: 09/11/16 09:01 Dose: 50 mg - Labs Labs: 09/12/16 06:00 09/12/16 06:00 PT 11.2 Seconds (9.9-11.8) 09/10/16 14:30 INR 1.04 (0.93-1.08) 09/10/16 14:30 APTT 31.0 Seconds (23.7-30.8) H 09/10/16 14:30 - Constitutional Appears: Non-toxic, No Acute Distress - Head Exam Head Exam: ATRAUMATIC, NORMOCEPHALIC - Eye Exam Eye Exam: EOMI, Normal appearance - Respiratory Exam Respiratory Exam: Clear to Ausculation Bilateral, NORMAL BREATHING PATTERN - Cardiovascular Exam Cardiovascular Exam: Bradycardia, +S1, +S2 - GI/Abdominal Exam GI & Abdominal Exam: Soft. absent: Tenderness - Exam External exam: absent: Ecchymosis, Erythema - Extremities Exam Extremities Exam: absent: Pedal Edema, Tenderness - Neurological Exam Neurological Exam: Alert, Awake - Skin Skin Exam: Intact, Pallor Additional comments: L sacral decubitus ulcer Assessment and Plan - Assessment and Plan (Free Text) Plan: 81 yo F w/PMHx of CVA 2012, anemia, SLE, depression/bipolar/anxiety, CAD, hypothyroid, seizures, presents from physician's office for low hemoglobin and sent to ED for blood transfusion. Anemia w/ initial hemoglobin of 6: transfusion of 2 packs of irradiated PRBC 09/10, current hemoglobin is stable 8.5 H/H monitor Telemetry admission GI consult appreciated Hyperkalemia of 5.3: kayexalate 15 PEG administered yesterday EKG with some T wave peaking but not other abnormalities monitor CAD: ASA 81 and plavix 75 mg po qd on hold due to anemia lipitor 40 qd hypothyroid: synthroid 50 mcg peg acb colace 100mg peg qd depression/bipolar/anxiety: buproprion 75 bid zyprexa 5 mg peg hs zoloft 50 mg peg qd SLE: plaquenil 400 mg peg qd seizures: Keppra 500 mg peg qd urinary cx positive for klebsiella pneumoniae cx sensitive to ceftriaxone ceftriaxone IV PPx measures: protonix scd Tylenol Tube feeding and wound care <Matias Jovel - Last Filed: 09/12/16 16:22> Objective - Vital Signs/Intake and Output Vital Signs (last 24 hours): Temp Pulse Resp BP Pulse Ox 97.1 F L 53 L 19 116/53 L 99 09/12/16 12:00 09/12/16 13:22 09/12/16 12:00 09/12/16 12:00 09/12/16 00:01 Intake and Output: 09/12/16 09/12/16 06:59 18:59 Intake Total 720 Output Total 2800 Balance -2080 - Medications Medications: Current Medications Acetaminophen (Tylenol 650mg/20.3ml Solution Ud) 650 mg PEG Q6H PRN PRN Reason: Fever >100.4 F Ascorbic Acid (Vitamin C 500 Mg Tab) 500 mg PEG DAILY [facility] Last Admin: 09/12/16 15:04 Dose: 500 mg Atorvastatin Calcium (Lipitor) 40 mg PEG DAILY [facility] Last Admin: 09/12/16 15:04 Dose: 40 mg Bupropion HCl (Wellbutrin) 75 mg PEG BID [facility] Last Admin: 09/12/16 15:04 Dose: 75 mg Docusate Sodium (Colace Liquid) 100 mg PEG DAILY [facility] Last Admin: 09/12/16 15:03 Dose: 100 mg Ferrous Sulfate (Feosol Liq) 300 mg PEG BID [facility] Last Admin: 09/12/16 15:05 Dose: 300 mg Ceftriaxone Sodium (Rocephin 1 Gram Ivpb) 1 gm in 100 mls @ 100 mls/hr IVPB DAILY KARO PRN Reason: Protocol Last Admin: 09/12/16 10:16 Dose: 100 mls/hr Levetiracetam (Keppra) 500 mg PEG DAILY [facility] Last Admin: 09/12/16 15:03 Dose: 500 mg Levothyroxine Sodium (Synthroid) 50 mcg PEG ACB [facility] Last Admin: 09/12/16 15:04 Dose: 50 mcg Magnesium Hydroxide (Milk Of Magnesia) 30 ml PEG HS PRN PRN Reason: Constipation Olanzapine (Zyprexa Zydis) 5 mg PEG HS KARO PRN Reason: Protocol Last Admin: 09/11/16 21:54 Dose: 5 mg Pantoprazole Sodium (Protonix Susp) 40 mg PEG DAILY [facility] Last Admin: 09/12/16 15:04 Dose: 40 mg Sertraline HCl (Zoloft) 50 mg JT DAILY [facility] Last Admin: 09/12/16 15:03 Dose: 50 mg - Labs Labs: 09/12/16 06:00 09/12/16 06:00 PT 11.2 Seconds (9.9-11.8) 09/10/16 14:30 INR 1.04 (0.93-1.08) 09/10/16 14:30 APTT 31.0 Seconds (23.7-30.8) H 09/10/16 14:30 Attending/Attestation - Attestation I have personally seen and examined this patient.: Yes I have fully participated in the care of the patient.: Yes I have reviewed all pertinent clinical information, including history, physical exam and plan: Yes Notes (Text): 09/12/16 16:20 81 year old female with past medical history of CVA, chronic anemia, SLE, depression, bipolar, anxiety, CAD and hypothyroidism who was sent by pmd for anemia with hemoglobin of 6.0. Anemia workup was reviewed as above. She received 2 units of prbc since admission and her hemoglobin has been stable since. She was seen by GI who has ordered for abdominal ultrasound for mildly elevated LFTs which will be done today. Case was also discussed with Dr. Smith from hematology; will follow up with his recommendations. Continue to monitor creatinine closely for CKD. Continue with home medications with exception of aspirin/plavix for now in view of anemia. Continue with tube feeds and wound care. She is on iv ceftriaxone for Klebsiella UTI. One bottle BC was positive for coag negative staph; likely contaminant. Will monitor. Matias Jovel MD Hospitalist.
[2016-09-12] MEDS: levETIRAcetam 500 mg/5ml UD cups PEG SCH (15:03)
[2016-09-12] MEDS: Pantoprazole 40 mg Susp UD PEG SCH (15:04)
[2016-09-12] MEDS: Levothyroxine 50 MCG TAB PEG SCH (15:04)
--- NOTE | 2016-09-12 15:56 | US ---
HISTORY: abdominal pain/Elevated LFT COMPARISON: None. TECHNIQUE: Sonographic evaluation of the abdomen. FINDINGS: LIVER: Measures 15.0 cm. Normal echogenicity of the liver parenchyma. No mass. No intrahepatic bile duct dilatation. GALLBLADDER: Status post cholecystectomy COMMON BILE DUCT: Measures 7 mm. No stones. No dilatation. PANCREAS: Unremarkable as visualized. No mass. No ductal dilatation. RIGHT KIDNEY: Measures 9.8 cm. 2 cortical cysts, 1.8 by 1.2 x 1.9 cm and 4.4 x 2.6 x 3.5 cm. Normal echogenicity. No calculus or hydronephrosis. LEFT KIDNEY: Measures 10.1cm. Normal echogenicity. No calculus, mass, or hydronephrosis. SPLEEN: Normal in size and contour. No mass. AORTA: No aneurysmal dilatation. IVC: Unremarkable. OTHER FINDINGS: None. IMPRESSION: Two right renal cysts. Status post cholecystectomy. Otherwise unremarkable examination.
--- NOTE | 2016-09-12 21:14 | PN ---
DATE: 09/12/2016 This is the patient's hospital visit on the telemetry floor. For Dr. Peguero. SUBJECTIVE: The patient is an 81-year-old female with known history of dementia, CVA, depression, SL E admitted for evaluation after significant anemic indices was noted. She is now status post transfu goldie of 2 units of packed red blood cells and lying somnolent but arousable, in no acute distress. S he also is fed via G-tube with strict I's and O's recommended so that she does not become dehydrated, as she takes poor to no p.o. with oral hygiene also to be recommended at this point. She is also no jasmyn to have a sacral decubitus for which Optifoam will be recommended. PHYSICAL EXAMINATION: VITAL SIGNS: Temperature 98.4, pulse 63, respirations 16, blood pressure 119/58 with a pulse ox of 9 9%. HEENT: Unremarkable. NECK: Supple. HEART: Regular rate, occasional ectopic beat. LUNGS: M inimal decreased breath sounds at the bases. ABDOMEN: Soft, nontender with positive PEG tube viable . EXTREMITIES: No edema. SKIN: Warm, dry and clear with a sacral decubitus on the buttock on the left. NEUROLOGIC: Somnolent but arousable. LABORATORY DATA: The patient's labs were done. White blood cell count of 4.2, hemoglobin 8.5, statu s post transfusion 2 days prior for a hemoglobin of 6.0, hematocrit of 24.8, platelet count of 172,00 0 with a chem metabolic panel showing a BUN of 70 with a normal creatinine of 1.4, AST of 62, ALT of 80, LDH of 491, otherwise normal chem metabolic panel. Her urine showed a large amount of blood, lar ge leukocyte esterase with the microbiology showing Klebsiella pneumoniae in her urine culture, great er than 100,000 colonies with her blood culture showing Gram-positive cocci in clusters, coagulase ne gative. ASSESSMENT: For this patient is that of suspected urosepsis, symptomatic anemia, nutrition, decubitu s ulcers stage III and IV, sepsis, multiinfarct dementia, ASCVD, status post CABG, Lupus cerebritis. PLAN: For this patient will be to continue plan as per Dr. Jovel with Rocephin given for Klebsiella urinary tract infection. With the blood cultures, possibly contaminant. for consideration for an infectious disease consult as indicated. We will monitor her labs as her anemic indices is n ow improved with consideration for further transfusions as indicated, with a hemoglobin of 8.5. We w ill ask for oral hygiene q. shift with strict I's and O's and Optifoam for her sacral decubitus and m onitor clinically and with labs. Ronnie Lemons MD cc: [id number] TT: 09/12/2016 21:14:07 Confirmation # [id number] Dictation # [id number] mn
[2016-09-12] MEDS: OLANZapine 5 mg Disintegrating Tab PEG SCH (22:11)
--- NOTE | 2016-09-13 00:36 | PN ---
DATE: 09/12/2016 ADDENDUM This is an addendum to the GI progress report dictated by Nataliia Vincent NP. SUBJECTIVE: The patient was seen and evaluated earlier, status post transfusion. PHYSICAL EXAMINATION: VITALS: Hemoglobin 8.5, hematocrit 24.8. Tolerating G-tube feeding. ABDOMEN: Soft, no tenderness. PLAN: The patient is being treated for urinary tract infection. Will discuss with the family again regarding the colonoscopy. Thank you very much for allowing us to participate in care of the patient. Nancy Garces MD cc: [id number] TT: 09/13/2016 00:35:58 Confirmation # [id number] Dictation # [id number] mn
[2016-09-13 06:44] LABS: ADD MANUAL DIFF? NO
[2016-09-13 06:56] LABS: BASO # 0.01 K/mm3 (0.0-2.0); BASO % 0.3 % (0.0-3.0); EOS # 0.4 (0.0-0.7); EOS % 11.6 % (1.5-5.0); GRAN # 2.35 (1.4-6.5); GRAN % 63.5 % (50.0-68.0); LYMPH # 0.5 (1.2-3.4); LYMPH % 14.6 % (22.0-35.0); MEAN CELL VOLUME 98.4 fL (80.0-105.0); MEAN CORPUSCULAR HEMOGLOBIN 33.3 pg (25.0-35.0); MEAN CORPUSCULAR HGB CONC 33.9 g/dl (31.0-37.0); MEAN PLATELET VOLUME 8.9 fl (7.0-11.0); MONO # 0.4 (0.1-0.6); PLATELET COUNT 149 10^3/uL (120.0-450.0); RED CELL DISTRIBUTION WIDTH 17.9 % (11.5-14.5); WHITE BLOOD COUNT 3.7 10^3/ul (4.5-11.0)
[2016-09-13 06:59] LABS: HEMATOCRIT 23.9 % (36.0-48.0)
[2016-09-13 07:14] LABS: ALB/GLOB RATIO 0.9 (1.1-1.8); BILIRUBIN,TOTAL 0.4 mg/dL (0.2-1.3); CALCIUM 8.8 mg/dL (8.4-10.5); POTASSIUM 4.8 mmol/L (3.6-5.0); TOTAL PROTEIN 5.8 g/dL (5.8-8.3)
[2016-09-13] MEDS: Levothyroxine 50 MCG TAB PEG SCH (08:05)
--- NOTE | 2016-09-13 09:27 | CP.PCM.PN ---
<AnandAissatou - Last Filed: 09/13/16 16:35> Subjective - Date & Time of Evaluation Date of Evaluation: 09/13/16 Time of Evaluation: 07:45 - Subjective Subjective: Pt seen and evaluated at bedside. Pt does not answer questions today unlike other days, more lethargic. Afebrile overnight. Objective - Vital Signs/Intake and Output Vital Signs (last 24 hours): Temp Pulse Resp BP Pulse Ox 97.9 F 71 20 134/90 98 09/13/16 05:51 09/13/16 05:51 09/13/16 05:51 09/13/16 05:51 09/13/16 05:51 Intake and Output: 09/13/16 09/13/16 06:59 18:59 Intake Total 1175 Output Total 700 Balance 475 - Medications Medications: Current Medications Acetaminophen (Tylenol 650mg/20.3ml Solution Ud) 650 mg PEG Q6H PRN PRN Reason: Fever >100.4 F Ascorbic Acid (Vitamin C 500 Mg Tab) 500 mg PEG DAILY [facility] [place] Last Admin: 09/12/16 15:04 Dose: 500 mg Atorvastatin Calcium (Lipitor) 40 mg PEG DAILY [facility] [place] Last Admin: 09/12/16 15:04 Dose: 40 mg Bupropion HCl (Wellbutrin) 75 mg PEG BID [facility] [place] Last Admin: 09/12/16 15:04 Dose: 75 mg Docusate Sodium (Colace Liquid) 100 mg PEG DAILY [facility] [place] Last Admin: 09/12/16 15:03 Dose: 100 mg Ferrous Sulfate (Feosol Liq) 300 mg PEG BID [facility] [place] Last Admin: 09/12/16 15:05 Dose: 300 mg Ceftriaxone Sodium (Rocephin 1 Gram Ivpb) 1 gm in 100 mls @ 100 mls/hr IVPB DAILY [facility] PRN Reason: Protocol Last Admin: 09/12/16 10:16 Dose: 100 mls/hr Levetiracetam (Keppra) 500 mg PEG DAILY [facility] [place] Last Admin: 09/12/16 15:03 Dose: 500 mg Levothyroxine Sodium (Synthroid) 50 mcg PEG ACB [facility] [place] Last Admin: 09/13/16 08:05 Dose: 50 mcg Magnesium Hydroxide (Milk Of Magnesia) 30 ml PEG HS PRN PRN Reason: Constipation Olanzapine (Zyprexa Zydis) 5 mg PEG HS [facility] PRN Reason: Protocol Last Admin: 09/12/16 22:11 Dose: 5 mg Pantoprazole Sodium (Protonix Susp) 40 mg PEG DAILY [facility] [place] Last Admin: 09/12/16 15:04 Dose: 40 mg Sertraline HCl (Zoloft) 50 mg JT DAILY [facility] [place] Last Admin: 09/12/16 15:03 Dose: 50 mg - Labs Labs: 09/13/16 06:30 09/13/16 06:30 PT 11.2 Seconds (9.9-11.8) 09/10/16 14:30 INR 1.04 (0.93-1.08) 09/10/16 14:30 APTT 31.0 Seconds (23.7-30.8) H 09/10/16 14:30 - Constitutional Appears: No Acute Distress, Confused - Head Exam Head Exam: ATRAUMATIC, NORMOCEPHALIC - Eye Exam Eye Exam: EOMI, Normal appearance - ENT Exam ENT Exam: Mucous Membranes Moist, Normal Exam - Respiratory Exam Respiratory Exam: Clear to Ausculation Bilateral, NORMAL BREATHING PATTERN - Cardiovascular Exam Cardiovascular Exam: +S1, +S2. absent: Tachycardia - GI/Abdominal Exam GI & Abdominal Exam: Soft. absent: Tenderness Additional comments: PEG tube in mid upper abdomen - Exam External exam: Lesions. absent: Erythema Additional comments: L sacral decubitus ulcer - Extremities Exam Extremities Exam: Normal Capillary Refill. absent: Tenderness - Neurological Exam Neurological Exam: Awake - Skin Skin Exam: Warm. absent: Diaphoretic Assessment and Plan - Assessment and Plan (Free Text) Plan: 81 yo F w/PMHx of CVA 2012, anemia, SLE, depression/bipolar/anxiety, CAD, hypothyroid, seizures, presents from physician's office for low hemoglobin and sent to ED for blood transfusion. Anemia w/ initial hemoglobin of 6: transfusion of 2 packs of irradiated PRBC 09/10, current hemoglobin is stable 8.1 H/H monitor Telemetry admission GI consult appreciated AMS: psychiatry consult appreciated not acute findings on head CT (09/13) Hyperkalemia of 5.3: kayexalate 15 PEG administered 09/11 EKG with some T wave peaking but not other abnormalities monitor CAD: ASA 81 and plavix 75 mg po qd on hold due to anemia lipitor 40 qd hypothyroid: synthroid 50 mcg peg acb colace 100mg peg qd depression/bipolar/anxiety: buproprion 75 bid zyprexa 5 mg peg hs zoloft 50 mg peg qd SLE: plaquenil 400 mg peg qd seizures: Keppra 500 mg peg qd urinary cx positive for klebsiella pneumoniae cx sensitive to ceftriaxone ceftriaxone IV PPx measures: protonix scd Tylenol Tube feeding and wound care <Matias Jovel - Last Filed: 09/13/16 17:01> Objective - Vital Signs/Intake and Output Vital Signs (last 24 hours): Temp Pulse Resp BP Pulse Ox 97.3 F L 64 18 121/54 L 98 09/13/16 12:00 09/13/16 12:00 09/13/16 12:00 09/13/16 12:00 09/13/16 05:51 Intake and Output: 09/13/16 09/13/16 06:59 18:59 Intake Total 1175 0 Output Total 700 1350 Balance 475 -1350 - Medications Medications: Current Medications Acetaminophen (Tylenol 650mg/20.3ml Solution Ud) 650 mg PEG Q6H PRN PRN Reason: Fever >100.4 F Ascorbic Acid (Vitamin C 500 Mg Tab) 500 mg PEG DAILY [facility] [place] Last Admin: 09/13/16 09:59 Dose: 500 mg Atorvastatin Calcium (Lipitor) 40 mg PEG DAILY [facility] [place] Last Admin: 09/13/16 09:59 Dose: 40 mg Bupropion HCl (Wellbutrin) 75 mg PEG BID [facility] [place] Last Admin: 09/13/16 09:58 Dose: 75 mg Docusate Sodium (Colace Liquid) 100 mg PEG DAILY [facility] [place] Last Admin: 09/13/16 09:58 Dose: 100 mg Ferrous Sulfate (Feosol Liq) 300 mg PEG BID [facility] [place] Last Admin: 09/13/16 09:58 Dose: 300 mg Ceftriaxone Sodium (Rocephin 1 Gram Ivpb) 1 gm in 100 mls @ 100 mls/hr IVPB DAILY [facility] [place] PRN Reason: Protocol Last Admin: 09/13/16 09:59 Dose: 100 mls/hr Levetiracetam (Keppra) 500 mg PEG DAILY [facility] [place] Last Admin: 09/13/16 09:59 Dose: 500 mg Levothyroxine Sodium (Synthroid) 50 mcg PEG ACB [facility] [place] Last Admin: 09/13/16 08:05 Dose: 50 mcg Magnesium Hydroxide (Milk Of Magnesia) 30 ml PEG HS PRN PRN Reason: Constipation Olanzapine (Zyprexa Zydis) 5 mg PEG HS [facility] PRN Reason: Protocol Last Admin: 09/12/16 22:11 Dose: 5 mg Pantoprazole Sodium (Protonix Susp) 40 mg PEG DAILY [facility] [place] Last Admin: 09/13/16 09:59 Dose: 40 mg Sertraline HCl (Zoloft) 50 mg JT DAILY [facility] [place] Last Admin: 09/13/16 09:59 Dose: 50 mg - Labs Labs: 09/13/16 06:30 09/13/16 06:30 PT 11.2 Seconds (9.9-11.8) 09/10/16 14:30 INR 1.04 (0.93-1.08) 09/10/16 14:30 APTT 31.0 Seconds (23.7-30.8) H 09/10/16 14:30 Attending/Attestation - Attestation I have personally seen and examined this patient.: Yes I have fully participated in the care of the patient.: Yes I have reviewed all pertinent clinical information, including history, physical exam and plan: Yes Notes (Text): 09/13/16 16:56 81 year old female with past medical history of CVA, chronic anemia, SLE, depression, bipolar, anxiety, CAD and hypothyroidism who was sent by pmd for anemia with hemoglobin of 6.0. Anemia workup was reviewed as above. She received 2 units of prbc since admission and her hemoglobin had improved although today hemoglobin is 8.1. Will monitor closely and transfuse as needed. GI and hematology are following. Will discuss regarding possible bone marrow biopsy vs colonoscopy. Continue to monitor LFTs closely. US abdomen was reviewed. Continue to monitor creatinine closely for CKD. Continue with home medications with exception of aspirin/plavix for now in view of anemia. Continue with tube feeds and wound care as per wound care nurse. She is on iv ceftriaxone for Klebsiella UTI. One bottle BC was positive for coag negative staph; likely contaminant. Will monitor. Today she is a bit lethargic this morning. Will obtain CT head and request for psychiatry evaluation. Matias Jovel MD Hospitalist.
[2016-09-13] MEDS: Ferrous Sulfate 300 mg/5 mL Liq UD PEG SCH ×3 (09:58→18:48)
[2016-09-13] MEDS: levETIRAcetam 500 mg/5ml UD cups PEG SCH (09:59)
[2016-09-13] MEDS: cefTRIAXone 1 gm 1 GM/100 ML BAG IVPB SCH (09:59)
[2016-09-13] MEDS: Pantoprazole 40 mg Susp UD PEG SCH (09:59)
--- NOTE | 2016-09-13 13:16 | PN ---
DATE: 09/13/2016 Seen and examined at the bedside earlier today. The patient is awake, but not verbally responsive, b ut looks a little lethargic this morning. Continues with PEG feedings at 55 mL per hour with feeding tube flushes. No reports of any nausea, vomiting or abdominal pain. The patient reporting to have bowel movement. No reports of any diarrhea or overt GI bleed. VITAL SIGNS: Temperature 97.9, blood pressure 134/90, pulse 57, respirations 20, 98 nasal cannula. LABORATORY DATA: WBC 3.7, H and H is 8.1 and 23.9, platelets of 149. Sodium 143, K is 4.8, BUN is 7 5, creatinine is 1.5, total bilirubin 0.4, AST 58, ALT 70, alk phos is 471. LFTs are elevated, but i t is slightly improved. She went for an abdominal ultrasound and that was negative for stones, no CB D stones. PHYSICAL EXAMINATION: HEENT: Sclerae are anicteric. NECK: Supple. CARDIAC: S1, S2. LUNGS: With decreased breath sounds, but good air entry, no rales or wheeze. ABDOMEN: With bowel sounds, soft. It is not tender, positive PEG in the upper abdomen. The inserti on site is dry and intact. No drainage or bleeding or erythema. EXTREMITIES: Lower extremities: No edema, no calf tenderness. NEUROLOGIC: The patient is awake. She follows simple commands. ASSESSMENT: An 81-year-old female with a past medical history of cerebrovascular accident, anemia, s ystemic lupus erythematosus, depression, found to have low hemoglobin at primary care physician natalee gupta and sent to the Emergency Room for further evaluation and blood transfusion. The patient had 2 uni ts of packed RBCs. No overt gastrointestinal bleed. She is noted to have elevated liver enzymes, co uld be secondary to hepatic congestion or medication induced. Ultrasound was negative. She has a hi story of a cholecystectomy. Other comorbidities are coronary artery disease, hypothyroidism, and sei zures. PLAN: I spoke to her POA, Mag ____, at [phone]. She is going to discuss with the patient's regarding undergoing a colonoscopy and will call back. I gave her our office number. She is on IV antibiotics for a UTI, positive Klebsiella pneumoniae. She is on stool softeners, is also on liquid iron via the PEG, on Keppra. Continue GI prophylaxis, on Protonix. We will continue to follo w up. The patient was seen and case discussed with Dr. Garces. Nataliia CARLSON cc: [id number] TT: 09/13/2016 13:15:50 Confirmation # [id number] Dictation # [id number] tn
--- NOTE | 2016-09-13 13:43 | PN ---
DATE: 09/13/2016 For: Dr. Peguero. SUBJECTIVE: The patient is an 32-omea-htl-female seen lying in bed, somnolent but arousable, in no a cute distress with the patient having G tube feedings with flushes periodically. The patient is less alert to questioning and stimuli this visit. She does have sacral decubitus for which Optifoam was recommended with oral hygiene now done. Her labs show that she is mildly dehydrated. With hydration her hemoglobin may drop even further, lower than 8.1 value obtained today, with consideration for tr ansfusion as per Dr. Peguero's recommendations. On admission her hemoglobin was 6.0 status post negro sfusion she was 8.7, 8.5, 8.1 today. OBJECTIVE, PHYSICAL EXAMINATION: VITAL SIGNS: Temperature 97, respirations 20, blood pressure 134/90, pulse ox 98%. HEENT: Oxygen is on. GENERAL: The patient less alert this visit. NECK: Supple. HEART: Regular rate, occasional ectopic beat. LUNGS: Rare rhonchi. ABDOMEN: Positive PEG tube, otherwise nontender. EXTREMITIES: No edema, with hyperpigmentation bilaterally at the lower knee to ankles of a chronic n ature?. NEUROLOGIC: Arousable to stimuli, otherwise somnolent. SKIN: Warm, dry and clear except as above. LABORATORY DATA: White blood cell count 3.7, hemoglobin 8.1, hematocrit 23.9, platelet count 149,000 . Chem metabolic panel: BUN 75, creatinine 1.5. AST 58, ALT 70, alk phos 471. Urine culture from 09/10/2016 showed klebsiella with a blood culture with coagulase negative staph. ASSESSMENT: Urosepsis, symptomatic anemia status post transfusion, decubitus ulcer stage III, multii nfarct dementia, mental status change, atherosclerotic cardiovascular disease, status post coronary a rtery bypass graft with history of lupus cerebritis, and PEG feeding nutrition, questionable mild deh ydration. PLAN: Continue plan as per Dr. Jovel and consultants with consideration for transfusion for her anem ia as per Dr. Peguero with increase of her flushes from 40 mL to 100 mL an hour with continuation of her antibiotics with consideration for acute decubitus ulcer to be evaluated by surgical consultation as per attending. We will monitor clinically and with labs. Also, a CT scan of the head was ordered, has not been read yet. Ronnie Lemons MD cc: [id number] TT: 09/13/2016 13:42:25 Confirmation # [id number] Dictation # [id number] jn
--- NOTE | 2016-09-13 14:35 | CT ---
PROCEDURE: CT HEAD WITHOUT CONTRAST. HISTORY: ams COMPARISON: 06/10/2014 TECHNIQUE: Axial computed tomography images were obtained through the head/brain without intravenous contrast. Radiation dose: Total exam DLP = 677 mGy-cm. This CT exam was performed using one or more of the following dose reduction techniques: Automated exposure control, adjustment of the mA and/or kV according to patient size, and/or use of iterative reconstruction technique. FINDINGS: HEMORRHAGE: No intracranial hemorrhage. BRAIN: No mass effect or edema. There is focal encephalomalacia and atrophy in the right parietal lobe. There is focal encephalomalacia in the right basal ganglia VENTRICLES: Unremarkable. No hydrocephalus. CALVARIUM: Unremarkable. PARANASAL SINUSES: Unremarkable as visualized. No significant inflammatory changes. MASTOID AIR CELLS: Unremarkable as visualized. No inflammatory changes. OTHER FINDINGS: None. 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 No acute intracranial findings
--- NOTE | 2016-09-13 15:51 | CP.PCM.PCO ---
Physician Communication Note - Physician Communication Note Physician Communication Note: pt is f/u with in the community, will be seen by him.
[2016-09-13] MEDS ORDERED: OLANZapine 5 mg Disintegrating Tab PEG PRN (17:43)
--- NOTE | 2016-09-13 20:05 | CON ---
DATE: 09/13/2016 HISTORY OF PRESENT ILLNESS: The patient is an 81-year-old female who was brought to the Emergency Room due to severe anemia. The patient was brought to the hospital for transfusion. The patient is well known to me but right now she is not capable of giving a history. PAST MEDICAL HISTORY: I have known the patient for several years. I have made house visits in the past, seen her in rehab and also seen her in this hospital on consultation. The patient has had multiple episodes of psychosis and depression. 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 The patient has a history of cardiac stenting following a myocardial infarction. The patient has a history of hypertension. The patient has a gastrostomy tube, which was in place in the past several months. The patient has developed neurocognitive impairment secondary to her recent CVA. She also had a CVA in 2012. The patient has been on multiple psychotropic medicines, including antidepressants, Wellbutrin and Zoloft. She has also been on Abilify and Zyprexa antipsychotic medicine. The patient has a stage III ulcer on her gluteal folds. LABORATORY DATA: The patient had a CT scan of the head, which revealed right parietal encephalomalacia and cerebral atrophy. Other pertinent laboratory data includes: On admission, she had a white count of 7325-0372. Her hemoglobin was 6 on admission, is currently 8.1 following transfusions. Hematocrit 23.9. She has a platelet count of 149,000. The patient for some reason had urine for toxicology, which was all negative. Urinalysis showed a large amount of blood in her urine and large amount of leukocyte esterase. On admission, her sodium was 130, potassium 5.3, chloride is 97, CO2 25, BUN 80, creatinine 1.3, phosphorus 5.0. AST 62, ALT 70. The patient had an alkaline phosphatase of 432. Currently, today, her sodium went from 130 to today 143, potassium 4.8, CO2 110, BUN 75, creatinine 1.5. Her transaminases reveal an AST of 58, ALT of 70, alkaline phosphatase of 471, albumin of 2.8. CURRENT MEDICATIONS: Include Rocephin IVPB, Synthroid through PEG, vitamin C, Wellbutrin 75 mg b.i.d., Zoloft 50 mg per PEG, Zyprexa Zydis 5 mg through her PEG at bedtime. PERSONAL HISTORY: She is living at home with 24-hour nurses. She has a power of admitted attorneys, a niece. Her is alive and lives with her, along with lay out former. PHYSICAL EXAMINATION: VITAL SIGNS: Blood pressure is 126/66, pulse 64, respirations 18 per minute and afebrile. PSYCHIATRIC MENTAL STATUS: She appears obtunded. She is unarousable, breathing. IMPRESSION: She has delirium, history of severe anemia, history of gluteal ulcers, history of prior cerebrovascular accident, history of neurocognitive impairment, past history of lupus and lupus cerebritis. She has history of right parietal infarct. She has a history of electrolyte imbalance, hyponatremia, now corrected. She has elevated liver functions. She has a possible gastrointestinal bleed. The patient has a history of hypothyroidism. PLAN: I would hold the Zyprexa Zydis at this time and I would also decrease Zoloft to 25 mg daily and hold Wellbutrin at this time. I will monitor her mental status. We will leave a p.r.n. order at bedtime for Zyprexa should she become agitated. Luke Sierra MD cc: [id number] TT: 09/13/2016 20:04:40 Confirmation # [id number] Dictation # [id number] MTDD
[2016-09-14] MEDS: Levothyroxine 50 MCG TAB PEG SCH (07:40)
[2016-09-14 08:21] LABS: ADD MANUAL DIFF? NO
[2016-09-14 08:24] LABS: BASO # 0.02 K/mm3 (0.0-2.0); BASO % 0.5 % (0.0-3.0); EOS # 0.5 (0.0-0.7); EOS % 12.1 % (1.5-5.0); GRAN # 2.62 (1.4-6.5); GRAN % 67.5 % (50.0-68.0); HEMATOCRIT 24.9 % (36.0-48.0); LYMPH # 0.6 (1.2-3.4); LYMPH % 14.2 % (22.0-35.0); MEAN CELL VOLUME 99.6 fL (80.0-105.0); MEAN CORPUSCULAR HEMOGLOBIN 32.8 pg (25.0-35.0); MEAN CORPUSCULAR HGB CONC 32.9 g/dl (31.0-37.0); MEAN PLATELET VOLUME 8.7 fl (7.0-11.0); MONO # 0.2 (0.1-0.6); MONO % 5.7 % (1.0-6.0); PLATELET COUNT 155 10^3/uL (120.0-450.0); RED CELL DISTRIBUTION WIDTH 17.6 % (11.5-14.5); WHITE BLOOD COUNT 3.9 10^3/ul (4.5-11.0)
[2016-09-14 08:44] LABS: ALB/GLOB RATIO 0.9 (1.1-1.8); BILIRUBIN,TOTAL 0.4 mg/dL (0.2-1.3); CALCIUM 8.8 mg/dL (8.4-10.5); TOTAL PROTEIN 6.2 g/dL (5.8-8.3)
[2016-09-14] MEDS: Ferrous Sulfate 300 mg/5 mL Liq UD PEG SCH ×2 (10:03→17:26)
[2016-09-14] MEDS: Pantoprazole 40 mg Susp UD PEG SCH (10:04)
[2016-09-14] MEDS: levETIRAcetam 500 mg/5ml UD cups PEG SCH (10:04)
[2016-09-14] MEDS: cefTRIAXone 1 gm 1 GM/100 ML BAG IVPB SCH (10:05)
--- NOTE | 2016-09-14 12:03 | PN ---
DATE: 09/14/[address] Peguero. SUBJECTIVE: The patient is an 81-year-old female seen lying awake in bed, more alert at this visit; however, she is nonverbal, with the patient in no acute distress. The patient does have G-tube feedi ng with flushes periodically which was increased as far as the volume flush as the patient's BUN and creatinine have been slowly rising, possibly due to dehydration. She has sacral decubitus for which Optifoam was recommended, with the patient's hemoglobin being monitored with consideration for trans fusion should the drop, as per Dr. Peguero's recommendations. She was transfused 2 units of packed c ells earlier in her stay for hemoglobin of 6. PHYSICAL EXAMINATION: VITAL SIGNS: Temperature 97, pulse 70, respirations 18, blood pressure 142/60, pulse ox 98%. HEENT: Unremarkable. NECK: Supple. HEART: Regular rate, occasional ectopic beat. LUNGS: Scattered rhonchi. ABDOMEN: Positive PEG tube, nontender. EXTREMITIES: Hyperpigmentation, no edema. NEUROLOGIC: More alert, but nonverbal. SKIN: Warm, dry and clear except for sacral decubitus. LABORATORY DATA: The patient's labs were done. White blood count 3.9, hemoglobin 8.2, hematocrit 24 .9, platelet count 155,000 with a chem metabolic panel showing a BUN of 77 with a creatinine of 1.5, AST 68, ALT of 82, alkaline phosphatase 537. The patient had a CAT scan of her head done yesterday, it was read as chronic encephalomalacia of the right parietal lobe. No acute intracranial findings. The patient's urine culture showed Klebsiella pneumoniae. Blood culture was coagulase negative staph . ASSESSMENT: Urosepsis symptomatic anemia, status post transfusion, decubitus ulcer stage III, multi- infarct dementia, mental status change, being addressed by neurology, atherosclerotic cardiovascular disease, status post coronary artery bypass graft, history of lupus cerebritis, PEG feeding nutrition , dehydration. The patient is now having a consult with Dr. Sierra, psychiatry, who reports she has history of delir ium with history of neurocognitive impairment with the right parietal infarct with changes of her med ications as per his recommendation. PLAN: After conversation with Dr. Peguero, continue present medical regimen. We will monitor clinic ally and with labs. Consideration for further transfusions as indicated as per the patient's and fam brock's wishes, consideration for hospice with DNR status to be addressed as per attending and family m isabel, with hydration, adjustment of her PEG feedings as per her attending. Ronnie Lemons MD cc: [id number] TT: 09/14/2016 12:03:09 Confirmation # [id number] Dictation # [id number] jn
--- NOTE | 2016-09-14 12:39 | CP.PCM.PN ---
<JohnsonSteve - Last Filed: 09/14/16 13:02> Subjective - Date & Time of Evaluation Date of Evaluation: 09/14/16 Time of Evaluation: 09:00 - Subjective Subjective: Medicine Progress note. Pt seen and examined at bedside. No acute events overnight as reported by nursing staff. Patient is lethargic and responds using one word answers. Denies any Pain, F/C. no complaints. Objective - Vital Signs/Intake and Output Vital Signs (last 24 hours): Temp Pulse Resp BP Pulse Ox 98.2 F 65 18 118/52 L 98 09/14/16 11:40 09/14/16 11:40 09/14/16 11:40 09/14/16 11:40 09/14/16 05:53 Intake and Output: 09/14/16 09/14/16 06:59 18:59 Intake Total 850 Output Total 825 Balance 25 - Medications Medications: Current Medications Acetaminophen (Tylenol 650mg/20.3ml Solution Ud) 650 mg PEG Q6H PRN PRN Reason: Fever >100.4 F Ascorbic Acid (Vitamin C 500 Mg Tab) 500 mg PEG DAILY COUNT INCLUDES THE [facility] Last Admin: 09/14/16 10:04 Dose: 500 mg Atorvastatin Calcium (Lipitor) 40 mg PEG DAILY COUNT INCLUDES THE [facility] Last Admin: 09/14/16 10:04 Dose: 40 mg Docusate Sodium (Colace Liquid) 100 mg PEG DAILY COUNT INCLUDES THE [facility] Last Admin: 09/14/16 10:04 Dose: 100 mg Ferrous Sulfate (Feosol Liq) 300 mg PEG BID COUNT INCLUDES THE [facility] Last Admin: 09/14/16 10:03 Dose: 300 mg Ceftriaxone Sodium (Rocephin 1 Gram Ivpb) 1 gm in 100 mls @ 100 mls/hr IVPB DAILY KARO PRN Reason: Protocol Last Admin: 09/14/16 10:05 Dose: 100 mls/hr Levetiracetam (Keppra) 500 mg PEG DAILY COUNT INCLUDES THE [facility] Last Admin: 09/14/16 10:04 Dose: 500 mg Levothyroxine Sodium (Synthroid) 50 mcg PEG ACB COUNT INCLUDES THE [facility] Last Admin: 09/13/16 08:05 Dose: 50 mcg Magnesium Hydroxide (Milk Of Magnesia) 30 ml PEG HS PRN PRN Reason: Constipation Olanzapine (Zyprexa Zydis) 2.5 mg PEG HS PRN; Protocol PRN Reason: Agitation Pantoprazole Sodium (Protonix Susp) 40 mg PEG DAILY COUNT INCLUDES THE [facility] Last Admin: 09/14/16 10:04 Dose: 40 mg Sertraline HCl (Zoloft) 25 mg JT DAILY COUNT INCLUDES THE [facility] Last Admin: 09/14/16 10:04 Dose: 25 mg - Labs Labs: 09/14/16 08:00 09/14/16 08:00 PT 11.2 Seconds (9.9-11.8) 09/10/16 14:30 INR 1.04 (0.93-1.08) 09/10/16 14:30 APTT 31.0 Seconds (23.7-30.8) H 09/10/16 14:30 - Constitutional Appears: No Acute Distress - Head Exam Head Exam: ATRAUMATIC, NORMAL INSPECTION, NORMOCEPHALIC - Eye Exam Eye Exam: EOMI - ENT Exam ENT Exam: Mucous Membranes Moist - Respiratory Exam Respiratory Exam: Clear to Ausculation Bilateral, NORMAL BREATHING PATTERN. absent: Wheezes - Cardiovascular Exam Cardiovascular Exam: RRR, +S1, +S2. absent: JVD - GI/Abdominal Exam GI & Abdominal Exam: Soft. absent: Distended, Guarding, Rigid, Tenderness - Extremities Exam Additional comments: Stage 3 ulcer to L ischial area. bandage intact - Neurological Exam Neurological Exam: Awake Additional comments: Decreased responsiveness, answers to questions after several attempts of questioning, answers with very low audible, one word answers Assessment and Plan - Assessment and Plan (Free Text) Assessment: 81 yo F w/PMHx of CVA 2012, anemia, SLE, depression/bipolar/anxiety, CAD, hypothyroid, seizures, presents from physician's office for low hemoglobin and sent to ED for blood transfusion. Anemia w/ initial hemoglobin of 6: transfusion of 2 packs of irradiated PRBC 09/10, Hb 8.2 today, will transfuse another unit pRBC today 09/14 H/H monitor Telemetry admission GI consult appreciated AMS in the setting of depression/bipolar/anxiety: psychiatry consult appreciated adjust meds as per psych not acute findings on head CT (09/13) CAD: ASA 81 and plavix 75 mg po qd on hold due to anemia lipitor 40 qd hypothyroid: synthroid 50 mcg peg acb colace 100mg peg qd SLE: plaquenil 400 mg peg qd seizures: Keppra 500 mg peg qd urinary cx positive for klebsiella pneumoniae cx sensitive to ceftriaxone ceftriaxone IV PPx measures: protonix scd Tylenol Tube feeding and wound care Had conversation with the at length. He states that he would really prefer if the patient were able to come home and live the rest of her days with him. He states that the patient has been in and out of the hospital for several months now and and she would rather be home if it is not absolutely necessary for her to be in a [facility]. I discussed the resuscitation status of the patient and he stated that they had talked about it prior and it was her wish to be DNR/DNI. Telephone consent for change in resuscitation status obtained and placed on chart. understands and agrees with plan. Dispo: Plan to have palliative care discussions with family on Friday (09/14) Discussed case with Dr. Med Ornelas PGY1 <Matias Jovel - Last Filed: 09/14/16 13:49> Objective - Vital Signs/Intake and Output Vital Signs (last 24 hours): Temp Pulse Resp BP Pulse Ox 98.2 F 65 18 118/52 L 98 09/14/16 11:40 09/14/16 11:40 09/14/16 11:40 09/14/16 11:40 09/14/16 05:53 Intake and Output: 09/14/16 09/14/16 06:59 18:59 Intake Total 850 Output Total 825 Balance 25 - Medications Medications: Current Medications Acetaminophen (Tylenol 650mg/20.3ml Solution Ud) 650 mg PEG Q6H PRN PRN Reason: Fever >100.4 F Ascorbic Acid (Vitamin C 500 Mg Tab) 500 mg PEG DAILY COUNT INCLUDES THE [facility] Last Admin: 09/14/16 10:04 Dose: 500 mg Atorvastatin Calcium (Lipitor) 40 mg PEG DAILY COUNT INCLUDES THE [facility] Last Admin: 09/14/16 10:04 Dose: 40 mg Docusate Sodium (Colace Liquid) 100 mg PEG DAILY COUNT INCLUDES THE [facility] Last Admin: 09/14/16 10:04 Dose: 100 mg Ferrous Sulfate (Feosol Liq) 300 mg PEG BID COUNT INCLUDES THE [facility] Last Admin: 09/14/16 10:03 Dose: 300 mg Ceftriaxone Sodium (Rocephin 1 Gram Ivpb) 1 gm in 100 mls @ 100 mls/hr IVPB DAILY COUNT INCLUDES THE [facility] PRN Reason: Protocol Last Admin: 09/14/16 10:05 Dose: 100 mls/hr Levetiracetam (Keppra) 500 mg PEG DAILY COUNT INCLUDES THE [facility] Last Admin: 09/14/16 10:04 Dose: 500 mg Levothyroxine Sodium (Synthroid) 50 mcg PEG ACB COUNT INCLUDES THE [facility] Last Admin: 09/13/16 08:05 Dose: 50 mcg Magnesium Hydroxide (Milk Of Magnesia) 30 ml PEG HS PRN PRN Reason: Constipation Olanzapine (Zyprexa Zydis) 2.5 mg PEG HS PRN; Protocol PRN Reason: Agitation Pantoprazole Sodium (Protonix Susp) 40 mg PEG DAILY COUNT INCLUDES THE [facility] Last Admin: 09/14/16 10:04 Dose: 40 mg Sertraline HCl (Zoloft) 25 mg JT DAILY COUNT INCLUDES THE [facility] Last Admin: 09/14/16 10:04 Dose: 25 mg - Labs Labs: 09/14/16 08:00 09/14/16 08:00 PT 11.2 Seconds (9.9-11.8) 09/10/16 14:30 INR 1.04 (0.93-1.08) 09/10/16 14:30 APTT 31.0 Seconds (23.7-30.8) H 09/10/16 14:30 Attending/Attestation - Attestation I have personally seen and examined this patient.: Yes I have fully participated in the care of the patient.: Yes I have reviewed all pertinent clinical information, including history, physical exam and plan: Yes Notes (Text): 09/14/16 13:45 81 year old female with past medical history of CVA, chronic anemia, SLE, depression, bipolar, anxiety, CAD and hypothyroidism who was sent by pmd for anemia with hemoglobin of 6.0. Her hemoglobin improved after prbc transfusion. Today hemoglobin is 8.2. Will transfuse one more unit. GI and hematology are following the patient. We did discuss with the on the phone today; wishes for DNR/DNI and hopes patient will be able to come home soon. He does not wish for any invasive procedures (ie colonoscopy or BM biopsy). Consider palliative care evaluation. DNR/DNI. Yesterday patient was lethargic but this has improved today. CT head was negative for acute findings. Psychiatry evaluation was appreciated and her medications were adjusted. Continue with home medications with exception of aspirin/plavix for now in view of anemia. Continue to monitor creatinine closely for CKD which is relatively stable. Continue with wound care as per wound care nurse. Continue with iv ceftriaxone for Klebsiella UTI. Continue with tube feeds. Matias Jovel MD Hospitalist.
--- NOTE | 2016-09-14 17:25 | PN ---
DATE: 09/14/2016 The patient is an 81-year-old female well known to me who has been admitted to the hospital for sever e anemia. She also has a history of prior cerebrovascular accident. She has a history of major psyc hiatric disorder with in the past history of psychosis and depression, currently also has now a certa in degree of neurocognitive impairment. Yesterday, patient's dose of Zyprexa was stopped and lowered to 2.5 mg at bedtime p.r.n. which she did not have last night, currently she is awake. She is somew hat distraught, despondent. She speaks very softly. She complains of some degree of discomfort near gastrostomy tube. The patient does follow simple commands. She knows where she is, she is oriented to person. The patient has some poverty of thought, questionable whether this is from neurocognitiv e impairment due to some degree of depression. Currently the patient is being treated for urosepsis and she is status post transfusion. She also has a decubiti ulcer in the gluteal falls. She has had multiple infarcts. I reviewed her various consultations from treating physicians and progress notes and nurses' notes. CURRENT MEDICATIONS: Include Colace liquid, Feosol, Keppra, Lipitor, Protonix, Rocephin, Zoloft 25 m g daily and Zyprexa Zydis 2.5 mg at bedtime p.r.n. LABORATORY DATA: Her white count is 3900. Her hemoglobin is 8.2 it was 6.0 prior to transfusion, he matocrit 24.9 and platelet count 155,000. Her metabolic profile reveals all her electrolytes were no rmal, however, her BUN is 77, creatinine 1.5, estimated GFR 33. The patient's AST of 68, ALT is 82, alkaline phosphatase 537; these are slowly going up. Her albumin is 2.9. VITAL SIGNS: Her blood pressure is 118/52, pulse 65. She is afebrile, respirations 18 per minute. IMPRESSION: She has a history of recurrent major depression, lupus cerebritis. She has a gastrostom y tube. She has parietal lobe encephalomalacia secondary to her previous stroke. She has a history of recurrent psychosis in the past in addition to depression. She also has a history of lupus cerebr itis. She has a history of severe anemia. She has ulcers in gluteal fold, has a mild neurocognitive impairment. The patient has a history of hypothyroidism. PLAN: In the past this patient has responded somewhat well to augmenting antidepressants effects of small doses of Ritalin. I will give her a therapeutic trial again of 5 mg in a.m. and afternoon star ting tomorrow. We will continue Zoloft. We will continue p.r.n. Zyprexa. We will also leave an or patti for Ativan 0.5 mg at bedtime p.r.n. for insomnia. Luke Sierra MD cc: [id number] TT: 09/14/2016 17:24:22 Confirmation # [id number] Dictation # [id number] jn
--- NOTE | 2016-09-15 00:05 | PN ---
DATE: 09/14/2016 SUBJECTIVE: This patient was seen and evaluated today. PHYSICAL EXAMINATION: GENERAL: Not in acute distress. VITAL SIGNS: Temperature 97.5, pulse 62, blood pressure 131/57 and respirations 22. HEENT: Atraumatic. Anicteric. NECK: Supple. HEART: S1, S2 heard. LUNGS: Bilateral air entry present. ABDOMEN: G-tube in place, tolerating the feedings. IMPRESSION: Initially the patient was admitted. This is an 81-year-old patient with a history of cer ebrovascular accident, chronic anemia, , depression, bipolar disorder, anxiety, admitted with a hemoglobin of 6. The patient did have a PEG tube placement in July. At that time, an endoscopy done . The concern now is to whether she colonoscopy. The patient does have multiple comorbidities and appears a frail patient. The patient is also on antibiotics now for a urinary tract infection. The hospitalist notes were reviewed. The plan was to transfuse one more unit. The family wishes to continue the DNR/DNI and did not want any invasive procedures. They wanted palliative care. Thank you very much for allowing us to participate in the care of the patient. Nancy Garces MD cc: [id number] TT: 09/15/2016 00:04:51 Confirmation # [id number] Dictation # [id number]
[2016-09-15] MEDS: Levothyroxine 50 MCG TAB PEG SCH (07:53)
[2016-09-15 08:27] LABS: HEMATOCRIT 26.3 % (36.0-48.0); MEAN CELL VOLUME 98.1 fL (80.0-105.0); MEAN CORPUSCULAR HEMOGLOBIN 32.5 pg (25.0-35.0); MEAN CORPUSCULAR HGB CONC 33.1 g/dl (31.0-37.0); MEAN PLATELET VOLUME 9.4 fl (7.0-11.0); RED CELL DISTRIBUTION WIDTH 18.7 % (11.5-14.5); WHITE BLOOD COUNT 4.1 10^3/ul (4.5-11.0)
[2016-09-15] MEDS: Pantoprazole 40 mg Susp UD PEG SCH (10:09)
[2016-09-15] MEDS: Ferrous Sulfate 300 mg/5 mL Liq UD PEG SCH (10:09)
[2016-09-15] MEDS: cefTRIAXone 1 gm 1 GM/100 ML BAG IVPB SCH (10:10)
[2016-09-15] MEDS: levETIRAcetam 500 mg/5ml UD cups PEG SCH (10:10)
--- NOTE | 2016-09-15 14:49 | PN ---
DATE: 09/15/2016 This is the patient's visit on the medical floor. For Dr. Peguero. SUBJECTIVE: The patient is an 81-year-old female, minimally more alert today, status post transfusio n 1 unit of packed cells yesterday with the patient developing nausea and vomiting. After review of her medication list via her PEG as she is n.p.o., she is getting Feosol liquid twice a day, vitamin C , and Lipitor, which will be discontinued as these can cause irritation to the stomach with Lipitor n ot necessary at this point as the patient is a DNR/DNI with consideration for hospice care. Her alessandro l function has declined due to dehydration with considerations for parenteral fluids as per her atten ding physician's recommendations as the patient is now vomiting. We will request a renal consult for fluid management with the patient's negative fluid balance recently. With the vomiting now, it woul d appear that this is even worse. With this, the patient is otherwise in no acute distress. The pat ient's DNR/DNI status is noted. With supportive comfort measures also to be instituted as per family 's request. OBJECTIVE AND PHYSICAL EXAMINATION: VITAL SIGNS: Temperature 97.5, pulse 60, respirations 18, blood pressure 119/70, pulse ox of 98%. HEENT: She appears more alert once Ritalin was started by Dr. Sierra, answers with a feeble voice. NECK: Supple. HEART: Regular rate, occasional ectopic beat. LUNGS: Occasional rhonchi. Decreased breath sounds. ABDOMEN: Positive PEG tube, soft, nontender. EXTREMITIES: Hyperpigmentation to the lower extremities, no edema. SKIN: Otherwise, warm, dry and clear. NEUROLOGIC: More alert, answering questions with feeble voice. SKIN: Warm, dry and clear except for sacral decubitus noted. LABORATORIES: Include a white blood cell count of 4.1, hemoglobin 8.7 after 1 unit of packed cells f or hemoglobin of 8.2 yesterday, hematocrit 26.3, platelet count of 152,000 with a chem metabolic pane l showing a BUN of 77, creatinine of 1.5, AST of 68, ALT of 82, alk phos of 537. ASSESSMENT: Urosepsis, symptomatic anemia, status post transfusion, decubitus ulcer, multiinfarct de mentia, mental status change, arteriosclerotic cardiovascular disease, status post coronary artery by pass graft, history of lupus cerebritis, percutaneous endoscopic gastrostomy feeding with nutrition, dehydration, vomiting. PLAN: After conversation with Dr. Peguero, is to give Zofran 1 dose IV for her vomiting, discontinue her ferrous sulfate liquid 300 mg b.i.d. Discontinue her vitamin C via her PEG and Lipitor will be discontinued for now with adjustment of her PEG feedings as per Dr. Garces with consult with Dr. Kristian cruz, renal, for patient's fluid balance as she is now vomiting and has no IV fluids ordered for. Wit h this, again, the patient is now DNR/DNI with consult with Shanta Campbell, nurse, for comfort measure s and hospice care to be done as per family's request. Ronnie Lemons MD cc: [id number] TT: 09/15/2016 14:49:00 Confirmation # [id number] Dictation # [id number] en
--- NOTE | 2016-09-15 16:19 | RAD ---
HISTORY: n/v COMPARISON: No prior. FINDINGS: BOWEL: Suboptimal imaging. No air-fluid levels identified. Few dilated loops colon in the left upper quadrant. BONES: Degenerative changes involving the lower spine. Extensive degenerative changes in both femoral heads. OTHER FINDINGS: Surgical clips in the right upper quadrant. Midline sternotomy wires seen in the lower thorax. Lung bases appear clear. IMPRESSION: Nonspecific bowel gas pattern. If there is continued suspicion for bowel obstruction, CT abdomen pelvis should be obtained.
[2016-09-15 16:44] VITALS: O2SAT 100
--- NOTE | 2016-09-15 19:26 | PN ---
DATE: 09/15/2016 SUBJECTIVE: This patient was seen and evaluated earlier. The patient had episodes of vomiting. No fever, discussed with the nurse . The feeding was on hold at the time of the examination. PHYSICAL EXAMINATION: VITAL SIGNS: Temperature is 97.2, pulse of 58, blood pressure 132/70. HEENT: Atraumatic, anicteric. NECK: Supple. HEART: S1, S2 heard. LUNGS: Bilateral air entry present, reduced at the base. ABDOMEN: Soft. The G-tube was present. EXTREMITIES: No edema. No cyanosis. NEUROLOGIC: Alert, awake, communicating well verbally. SKIN: warm and dry. LABORATORY DATA: Hemoglobin is 8.7, hematocrit 26.3, WBC is 4.1, platelets 152. BUN 77, creatinine 1.5, alkaline phosphatase 537. AST 68, ALT of 82. IMPRESSION: This is an 81-year-old patient admitted with severe anemia with a hemoglobin of 6. The patient has a history of status post cerebrovascular accident, systemic lupus erythematosus . The patient had a PEG tube placement in July and at that time, EGD was negative. The medical team had also discussed with the patient's power of transactional attorney. The decision was supportive care. The patient is DNR and DNI. They did not want any endoscopy or colonoscopic evaluation, but preferred only conservative management. I did request abdominal x-ray to further evaluate to rule out any obstruction. It showed nonspecific bowel gas pattern. RECOMMENDATIONS: We would recommend restart the feeding at 30 mL/hr. If any further vomiting, consider keeping patient n.p.o., continue the IV fluids and get a CT of the abdomen and pelvis to further evaluate. Plan at this point is mainly conservative management. I have discussed with Dr. Jovel and also Dr. Ronnie Lemons earlier. Nancy Garces MD cc: [id number] TT: 09/15/2016 19:25:29 Confirmation # [id number] Dictation # [id number] MTDD
--- NOTE | 2016-09-15 22:13 | CP.PCM.PN ---
<Aissatou Michel - Last Filed: 09/16/16 07:40> Subjective - Date & Time of Evaluation Date of Evaluation: 09/15/16 Time of Evaluation: 08:35 - Subjective Subjective: Pt seen and evaluated at bedside. Vomited three times today without blood and denies pain. Afebrile overnight. Objective - Vital Signs/Intake and Output Vital Signs (last 24 hours): Temp Pulse Resp BP Pulse Ox 97.2 F L 58 L 18 132/70 100 09/15/16 16:43 09/15/16 16:43 09/15/16 16:43 09/15/16 16:43 09/15/16 16:43 Intake and Output: 09/15/16 09/16/16 18:59 06:59 Intake Total 0 Output Total 900 Balance -900 - Medications Medications: Current Medications Acetaminophen (Tylenol 650mg/20.3ml Solution Ud) 650 mg PEG Q6H PRN PRN Reason: Fever >100.4 F Docusate Sodium (Colace Liquid) 100 mg PEG DAILY [facility] Last Admin: 09/15/16 10:09 Dose: 100 mg Ceftriaxone Sodium (Rocephin 1 Gram Ivpb) 1 gm in 100 mls @ 100 mls/hr IVPB DAILY [facility] PRN Reason: Protocol Last Admin: 09/15/16 10:10 Dose: 100 mls/hr Levetiracetam (Keppra) 500 mg PEG DAILY [facility] Last Admin: 09/15/16 10:10 Dose: 500 mg Levothyroxine Sodium (Synthroid) 50 mcg PEG ACB [facility] Last Admin: 09/15/16 07:53 Dose: 50 mcg Lorazepam (Ativan) 0.5 mg PO HS PRN PRN Reason: Insomnia Magnesium Hydroxide (Milk Of Magnesia) 30 ml PEG HS PRN PRN Reason: Constipation Methylphenidate HCl (Ritalin) 5 mg PEG 0800,1400 [facility] Last Admin: 09/15/16 15:52 Dose: Not Given Olanzapine (Zyprexa Zydis) 2.5 mg PEG HS PRN; Protocol PRN Reason: Agitation Ondansetron HCl (Zofran Inj) 4 mg IVP Q6H PRN PRN Reason: Nausea/Vomiting Last Admin: 09/15/16 17:46 Dose: 4 mg Pantoprazole Sodium (Protonix Susp) 40 mg PEG DAILY [facility] Last Admin: 09/15/16 10:09 Dose: 40 mg Sertraline HCl (Zoloft) 25 mg JT DAILY [facility] Last Admin: 09/15/16 10:10 Dose: 25 mg - Labs Labs: 09/15/16 06:50 09/14/16 08:00 PT 11.2 Seconds (9.9-11.8) 09/10/16 14:30 INR 1.04 (0.93-1.08) 09/10/16 14:30 APTT 31.0 Seconds (23.7-30.8) H 09/10/16 14:30 - Constitutional Appears: Non-toxic, No Acute Distress - Head Exam Head Exam: ATRAUMATIC, NORMOCEPHALIC - Eye Exam Eye Exam: EOMI, Normal appearance - Respiratory Exam Respiratory Exam: Clear to Ausculation Bilateral, NORMAL BREATHING PATTERN - Cardiovascular Exam Cardiovascular Exam: Bradycardia, +S1, +S2 - GI/Abdominal Exam GI & Abdominal Exam: Soft. absent: Tenderness - Exam External exam: absent: Ecchymosis, Erythema Additional comments: L sacral decubitus ulcer - Extremities Exam Extremities Exam: Normal Capillary Refill. absent: Tenderness - Neurological Exam Neurological Exam: Alert, Awake - Skin Skin Exam: Intact, Normal Color Assessment and Plan - Assessment and Plan (Free Text) Plan: 81 yo F w/PMHx of CVA 2012, anemia, SLE, depression/bipolar/anxiety, CAD, hypothyroid, seizures, presents from physician's office for low hemoglobin and sent to ED for blood transfusion. Anemia w/ initial hemoglobin of 6: transfusion of 2 packs of irradiated PRBC 09/10, and one unit on 09/14 Hb 8.7 today H/H monitor Telemetry admission, currently on GI consult appreciated Abdominal XR (ordered for vomiting) showed non-specific bowel gas Ordered abdominal CT after continued vomiting (three episodes), pending AMS in the setting of depression/bipolar/anxiety: psychiatry consult appreciated adjust meds as per psych not acute findings on head CT (09/13) CAD: ASA 81 and plavix 75 mg po qd on hold due to anemia lipitor 40 qd hypothyroid: synthroid 50 mcg peg acb colace 100mg peg qd SLE: plaquenil 400 mg peg qd seizures: Keppra 500 mg peg qd urinary cx positive for klebsiella pneumoniae cx sensitive to ceftriaxone ceftriaxone IV PPx measures: protonix scd Tylenol Tube feeding currently on hold but to be restarted at 30cc/hour maximum, and wound care <Matias Jovel - Last Filed: 09/16/16 13:23> Objective - Vital Signs/Intake and Output Vital Signs (last 24 hours): Temp Pulse Resp BP Pulse Ox 97.7 F 52 L 19 144/61 100 09/16/16 06:00 09/16/16 11:35 09/16/16 06:00 09/16/16 06:00 09/16/16 06:00 Intake and Output: 09/16/16 09/16/16 06:59 18:59 Intake Total 0 Output Total 1261 Balance -1261 - Medications Medications: Current Medications Acetaminophen (Tylenol 650mg/20.3ml Solution Ud) 650 mg PEG Q6H PRN PRN Reason: Fever >100.4 F Docusate Sodium (Colace Liquid) 100 mg PEG DAILY [facility] Last Admin: 09/16/16 10:26 Dose: 100 mg Ceftriaxone Sodium (Rocephin 1 Gram Ivpb) 1 gm in 100 mls @ 100 mls/hr IVPB DAILY [facility] PRN Reason: Protocol Last Admin: 09/16/16 10:26 Dose: 100 mls/hr Levetiracetam (Keppra) 500 mg PEG DAILY [facility] Last Admin: 09/16/16 10:26 Dose: 500 mg Levothyroxine Sodium (Synthroid) 50 mcg PEG ACB [facility] Last Admin: 09/16/16 10:26 Dose: 50 mcg Lorazepam (Ativan) 0.5 mg PO HS PRN PRN Reason: Insomnia Magnesium Hydroxide (Milk Of Magnesia) 30 ml PEG HS PRN PRN Reason: Constipation Methylphenidate HCl (Ritalin) 5 mg PEG 0800,1400 [facility] Last Admin: 09/16/16 10:25 Dose: 5 mg Olanzapine (Zyprexa Zydis) 2.5 mg PEG HS PRN; Protocol PRN Reason: Agitation Ondansetron HCl (Zofran Inj) 4 mg IVP Q6H PRN PRN Reason: Nausea/Vomiting Last Admin: 09/16/16 08:34 Dose: 4 mg Pantoprazole Sodium (Protonix Inj) 40 mg IVP DAILY [facility] Last Admin: 09/16/16 10:26 Dose: 40 mg Sertraline HCl (Zoloft) 25 mg JT DAILY [facility] Last Admin: 09/16/16 10:26 Dose: 25 mg - Labs Labs: 09/16/16 09:45 09/16/16 09:45 PT 11.2 Seconds (9.9-11.8) 09/10/16 14:30 INR 1.04 (0.93-1.08) 09/10/16 14:30 APTT 31.0 Seconds (23.7-30.8) H 09/10/16 14:30 Attending/Attestation - Attestation I have personally seen and examined this patient.: Yes I have fully participated in the care of the patient.: Yes I have reviewed all pertinent clinical information, including history, physical exam and plan: Yes Notes (Text): 09/15/16 81 year old female with past medical history of CVA, chronic anemia, SLE, depression, bipolar, anxiety, CAD and hypothyroidism who was sent by pmd for anemia with hemoglobin of 6.0. This improved after prbc transfusions. GI and hematology are following the patient. does not want any aggressive or invasive procedures and wishes she will come home soon. Today she has vomited 3 times. TF are on hold. AXR is reviewed and CT abd/ pelvis is ordered although conservative management should be aimed for given family requests. Palliative care eval ordered for AM. Continue with antibiotics for UTI. Continue for wound care. Psychiatry is also following for dementia/delirium and underlying depression/ bipolar. Matias Jovel MD Hospitalist.
--- NOTE | 2016-09-15 23:18 | CT ---
EXAM: CT Abdomen and Pelvis Without Intravenous Contrast CLINICAL HISTORY: 81 years old, female; Signs and symptoms; Vomiting; Additional info: Vomiting, R/O obstruction TECHNIQUE: Axial computed tomography images of the abdomen and pelvis without intravenous contrast. This CT exam was performed using one or more of the following dose reduction techniques: automated exposure control, adjustment of the mA and/or kV according to patient size, and/or use of iterative reconstruction technique. Coronal and sagittal reformatted images were created and reviewed. COMPARISON: CT - ABD PELVIS W/O PO OR IV CONT 07/05/2016 8:03:27 AM FINDINGS: Limitations: Lack of intravenous contrast. Lower thorax: Mild atelectasis/scarring. Coronary artery/valvular calcifications. ABDOMEN: Liver: Unremarkable. Gallbladder and bile ducts: Cholecystectomy. No ductal dilation. Pancreas: Unremarkable. No ductal dilation. Spleen: No splenomegaly. Adrenals: Mild hypertrophy of adrenal glands. Kidneys and ureters: RIGHT renal cysts. Few small renal calculi and/or vascular calcifications. No hydronephrosis. Stomach and bowel: Cecum within lower midline abdomen. Scattered diverticula within colon. No associated inflammatory stranding. No definite mural thickening. No obstruction. Gastrostomy tube. Appendix: Normal caliber. No inflammation. PELVIS: Bladder: Nela catheter. Apparent mild bladder wall thickening. Collapsed bladder, limiting evaluation. No stones. Reproductive: Unremarkable as visualized. ABDOMEN and PELVIS: Intraperitoneal space: No significant fluid collection. No free air. Bones/joints: Scoliosis and degenerative changes of spine. No acute fracture. Soft tissues: [id number] stranding within subcutaneous tissues. Vasculature: Moderate to extensive atherosclerotic disease of visualized arteries. Lymph nodes: No pathologically enlarged lymph nodes. IMPRESSION: 1. Diverticulosis without definite CT evidence of diverticulitis. 2. Mild cystitis vs underdistention. Correlate with urinalysis. 3. Incidental/non-acute findings are described above.
--- NOTE | 2016-09-16 09:00 | CP.PCM.CON ---
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 Lives withe rher . Family History: Non contributory. Advance Care Planning: The patient has an Advanced Directive dated 2008 in her chart. She is DNR/DNI. Her is healthcare decision maker. The niece, Santiago Maya is financial POA only Review of Systems: Patient is lethargic,altered mental status, unable to participate with review : Past Patient History - Infectious Disease Hx of Infectious Diseases: None - Tetanus Immunizations Tetanus Immunization: Unknown - Past Medical History & Family History Past Medical History?: Yes - Past Social History Smoking Status: Unknown If Ever Smoked - CARDIAC Hx Cardiac Disorders: Yes (CAD) Hx Cardia Arrhythmia: Yes Hx Congestive Heart Failure: Yes Hx Hypercholesterolemia: Yes Hx Hypertension: Yes Hx Peripheral Edema: Yes - PULMONARY Hx Respiratory Disorders: No - NEUROLOGICAL Hx Neurological Disorder: Yes HX Cerebrovascular Accident: Yes Hx Dementia: Yes Hx Seizures: Yes Hx Transient Ischemic Attacks (TIA): Yes - HEENT Hx HEENT Problems: No - RENAL Hx Chronic Kidney Disease: Yes - ENDOCRINE/METABOLIC Hx Endocrine Disorders: Yes Hx Systemic Lupus Erythematosus: Yes - HEMATOLOGICAL/ONCOLOGICAL Hx Anemia: Yes Hx Shingles: Yes - INTEGUMENTARY Hx Dermatological Problems: Yes Other/Comment: sacral decubitus ulcer-STAGE 4. BILATERAL ARMS EDEMA +2 MORE TO LEFT. GENERALIZED SKIN DISCOLORATION/GRAYISH TO BROWNSIH IN COLOR,SKIN DRYNESS, FLAKY SKIN MAINLY TO UPPER BACK. THICKEND TOENAILS,WITH CALLOUSED POST PART. - MUSCULOSKELETAL/RHEUMATOLOGICAL Hx Arthritis: Yes Hx Degenerative Joint Disease: Yes Hx Falls: Yes - GASTROINTESTINAL Hx Gastrointestinal Disorders: Yes Hx Gall Bladder Disease: Yes (1996) - GENITOURINARY/GYNECOLOGICAL Hx Incontinence: Yes - PSYCHIATRIC Hx Anxiety: Yes Hx Bipolar Disorder: Yes Hx Depression: Yes Hx Schizophrenia: Yes - SURGICAL HISTORY Hx Surgeries: Yes Hx Open Heart Surgery: Yes - ANESTHESIA Hx Anesthesia Reactions: No Hx Malignant Hyperthermia: No Meds Allergies/Adverse Reactions: Allergies Allergy/AdvReac Type Severity Reaction Status Date / Time codeine Allergy RASH Verified 09/10/16 14:02 etodolac [From Lodine] Allergy RASH Verified 09/10/16 14:02 iodine Allergy ANAPHYLAXIS Verified 09/10/16 14:02 sulfamethoxazole Allergy SWELLING Verified 09/10/16 14:02 [From Bactrim] trimethoprim [From Bactrim] Allergy SWELLING Verified 09/10/16 14:02 - Medications Medications: Current Medications Acetaminophen (Tylenol 650mg/20.3ml Solution Ud) 650 mg PEG Q6H PRN PRN Reason: Fever >100.4 F Docusate Sodium (Colace Liquid) 100 mg PEG DAILY [facility] Last Admin: 09/15/16 10:09 Dose: 100 mg Ceftriaxone Sodium (Rocephin 1 Gram Ivpb) 1 gm in 100 mls @ 100 mls/hr IVPB DAILY [facility] PRN Reason: Protocol Last Admin: 09/15/16 10:10 Dose: 100 mls/hr Levetiracetam (Keppra) 500 mg PEG DAILY [facility] Last Admin: 09/15/16 10:10 Dose: 500 mg Levothyroxine Sodium (Synthroid) 50 mcg PEG ACB [facility] Last Admin: 09/15/16 07:53 Dose: 50 mcg Lorazepam (Ativan) 0.5 mg PO HS PRN PRN Reason: Insomnia Magnesium Hydroxide (Milk Of Magnesia) 30 ml PEG HS PRN PRN Reason: Constipation Methylphenidate HCl (Ritalin) 5 mg PEG 0800,1400 [facility] Last Admin: 09/15/16 15:52 Dose: Not Given Olanzapine (Zyprexa Zydis) 2.5 mg PEG HS PRN; Protocol PRN Reason: Agitation Ondansetron HCl (Zofran Inj) 4 mg IVP Q6H PRN PRN Reason: Nausea/Vomiting Last Admin: 09/16/16 08:34 Dose: 4 mg Pantoprazole Sodium (Protonix Susp) 40 mg PEG DAILY [facility] Last Admin: 09/15/16 10:09 Dose: 40 mg Sertraline HCl (Zoloft) 25 mg JT DAILY [facility] Last Admin: 09/15/16 10:10 Dose: 25 mg Physical Exam - Constitutional Appears: Cachectic, Chronically Ill - Head Exam Head Exam: NORMAL INSPECTION - Eye Exam Eye Exam: Normal appearance, PERRL - ENT Exam ENT Exam: Mucous Membranes Moist - Neck Exam Neck exam: Positive for: Normal Inspection - Respiratory Exam Respiratory Exam: Decreased Breath Sounds, NORMAL BREATHING PATTERN - Cardiovascular Exam Cardiovascular Exam: REGULAR RHYTHM, +S1 - GI/Abdominal Exam GI & Abdominal Exam: Normal Bowel Sounds, Soft Results - Vital Signs Recent Vital Signs: Last Vital Signs Temp 97.2 F L 09/15/16 16:43 Pulse 58 L 09/15/16 16:43 Resp 18 09/15/16 16:43 BP 132/70 09/15/16 16:43 Pulse Ox 100 09/15/16 16:43 - Labs Result Diagrams: 09/15/16 06:50 09/14/16 08:00 Assessment & Plan - Assessment and Plan (Free Text) Assessment: 81 year old female admitted with anemia, CKD,malnutrition, decubiti ulcer, dementia. 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 She does not appear to be in distress. I spoke with patient , Chalino via phone. He is requesting that his come home. He does not want any invasive procedures. He affirms that he wants comfort care only. We reviewed patient's medical condition. understands that his 's health is deteriorating and that her prognosis is poor. Hospice services explained in detail. All questions answered. expresses that he wants to pursue hospice care.Psychosocial support given marketing community liaison will meet with Mr. Rangel today. If is agreeable, will likely discharge patient home with hospice services today. Time spent in discussion with regarding goals of care, hospice service and end of life counseling 45 minutes Plan: As discussed with Dr. Lubna Washington Hospice referral Comfort care
[2016-09-16 10:02] VITALS: BP 144/61; PULSE 52; RESP 19; TEMP 97.7
[2016-09-16 10:12] LABS: ADD MANUAL DIFF? NO
[2016-09-16 10:14] LABS: BASO # 0.02 K/mm3 (0.0-2.0); BASO % 0.5 % (0.0-3.0); EOS # 0.5 (0.0-0.7); EOS % 11.8 % (1.5-5.0); GRAN # 2.88 (1.4-6.5); GRAN % 68.1 % (50.0-68.0); HEMATOCRIT 30.4 % (36.0-48.0); LYMPH # 0.6 (1.2-3.4); LYMPH % 13.9 % (22.0-35.0); MEAN CELL VOLUME 98.4 fL (80.0-105.0); MEAN CORPUSCULAR HEMOGLOBIN 32.7 pg (25.0-35.0); MEAN CORPUSCULAR HGB CONC 33.2 g/dl (31.0-37.0); MONO # 0.2 (0.1-0.6); MONO % 5.7 % (1.0-6.0); PLATELET COUNT 144 10^3/uL (120.0-450.0); RED CELL DISTRIBUTION WIDTH 17.6 % (11.5-14.5); WHITE BLOOD COUNT 4.2 10^3/ul (4.5-11.0)
[2016-09-16 10:25] LABS: ALB/GLOB RATIO 0.9 (1.1-1.8); BILIRUBIN,TOTAL 0.8 mg/dL (0.2-1.3); CALCIUM 9.6 mg/dL (8.4-10.5); POTASSIUM 5.4 mmol/L (3.6-5.0); TOTAL PROTEIN 6.9 g/dL (5.8-8.3)
[2016-09-16] MEDS: levETIRAcetam 500 mg/5ml UD cups PEG SCH (10:26)
[2016-09-16] MEDS: Levothyroxine 50 MCG TAB PEG SCH (10:26)
[2016-09-16] MEDS: cefTRIAXone 1 gm 1 GM/100 ML BAG IVPB SCH (10:26)
[2016-09-16] MEDS ORDERED: Sod Polystyrene Sulf 15 gm/60 ml Oral Susp PR ONE (10:49)
[2016-09-16] MEDS ORDERED: Albuterol 0.083% Inhal Sol (2.5 mg/3 mL) UD INH ONE (10:51)
--- NOTE | 2016-09-16 12:36 | PN ---
DATE: 09/16/2016 The patient is an 81-year-old female who is quite debilitated. She was originally admitted for sever e anemia. She has sacral/gluteal ulcers, history of lupus erythematosus. She had a PEG placement 2 months ago. The patient has a power of associate attorney. 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 She has a history of depression with current psychotic s ymptoms. CURRENT MENTAL STATUS: She is awake, she is generally alert, debilitated. Recognizes me. Oriented to place and person. Speaks extremely softly. States, "I hurt all over." The patient states she sl ept off and on last night. CURRENT MEDICATIONS: Include lorazepam 0.5 mg at bedtime p.r.n., Keppra 500 mg daily, Synthroid, Humberto ephin, Zyprexa Zydis 2.5 mg at bedtime p.r.n. which she did not received last night, Zoloft 25 mg mariza ly. She has had Ritalin 5 mg p.o. q.a.m. and afternoon. The patient has not received Ativan at bedt rayshawn p.r.n. LABORATORY DATA: White count 4200, hemoglobin 10.1, platelet count 144,000. Her electrolytes: Sodi um 145, potassium 5.4, chloride 114. CO2 22, anion gap 10, BUN 76, creatinine 1.4. AST 67, ALT 87, alk phos 520. The rest of profile within normal range. REVIEW OF SYSTEMS: The patient's review of systems is as above, although her response to questions i s not totally lucid at times. VITAL SIGNS: Blood pressure is 144/61, pulse 52, she is afebrile, respirations 19 per minute, O2 sat uration 100%. IMPRESSION: The patient has a history of bipolar disorder, she has a history of lupus, she has a his tory of anemia, gluteal ulcers, prior cerebrovascular accident, she has mild neurocognitive impairmen t, history of recurrent depression, history of lupus cerebritis, electrolyte imbalance, history of hy pothyroidism. PLAN: In view of the fact the patient seems more alert, will maintain on Ritalin 5 mg b.i.d. and Zol oft 25 q.a.m. for depression, and Zyprexa 2.5 mg p.o. at bedtime p.r.n. for psychotic symptomatology only, and Ativan 0.5 mg at bedtime for insomnia. Continue to monitor her mental status. Luke Sierra MD cc: [id number] TT: 09/16/2016 12:36:00 Confirmation # [id number] Dictation # [id number] mn
--- NOTE | 2016-09-16 16:33 | CP.PCM.DIS ---
<Aissatou Michel - Last Filed: 09/17/16 07:59> Provider - Provider Date of Admission: 09/10/16 16:35 Attending physician: Matias Jovel MD Primary care physician: Nilesh Croft MD Consults: Sudhir Marte, Javier Gimenez. Palliative care consult Paramonte. Time Spent in preparation of Discharge (in minutes): 25 Hospital Course - Lab Results Lab Results: Micro Results 09/10/16 17:50 Urine Urine Culture - Final Klebsiella Pneumoniae Ssp Pneu Most Recent Lab Values WBC 4.2 10^3/ul (4.5-11.0) L 09/16/16 09:45 RBC 3.09 10^6/uL (3.5-6.1) L 09/16/16 09:45 Hgb 10.1 gm/dL (12.0-16.0) L 09/16/16 09:45 Hct 30.4 % (36.0-48.0) L 09/16/16 09:45 MCV 98.4 fL (80.0-105.0) 09/16/16 09:45 MCH 32.7 pg (25.0-35.0) 09/16/16 09:45 MCHC 33.2 g/dl (31.0-37.0) 09/16/16 09:45 RDW 17.6 % (11.5-14.5) H 09/16/16 09:45 Plt Count 144 10^3/uL (120.0-450.0) 09/16/16 09:45 MPV 9.0 fl (7.0-11.0) 09/16/16 09:45 Gran % 68.1 % (50.0-68.0) H 09/16/16 09:45 Lymph % (Auto) 13.9 % (22.0-35.0) L 09/16/16 09:45 Dickey % (Auto) 5.7 % (1.0-6.0) 09/16/16 09:45 Eos % (Auto) 11.8 % (1.5-5.0) H 09/16/16 09:45 Baso % (Auto) 0.5 % (0.0-3.0) 09/16/16 09:45 Gran # 2.88 (1.4-6.5) 09/16/16 09:45 Lymph # 0.6 (1.2-3.4) L 09/16/16 09:45 Dickey # 0.2 (0.1-0.6) 09/16/16 09:45 Eos # 0.5 (0.0-0.7) 09/16/16 09:45 Baso # 0.02 K/mm3 (0.0-2.0) 09/16/16 09:45 Retic Count 1.93 % (0.5-1.5) H 09/10/16 18:35 PT 11.2 Seconds (9.9-11.8) 09/10/16 14:30 INR 1.04 (0.93-1.08) 09/10/16 14:30 APTT 31.0 Seconds (23.7-30.8) H 09/10/16 14:30 Sodium 145 mmol/L (132-148) 09/16/16 09:45 Potassium 5.0 mmol/L (3.6-5.0) 09/16/16 15:42 Chloride 114 mmol/L (98-107) H 09/16/16 09:45 Carbon Dioxide 22 mmol/L (21-33) 09/16/16 09:45 Anion Gap 14 (10-20) 09/16/16 09:45 BUN 76 mg/dL (7-21) H 09/16/16 09:45 Creatinine 1.4 mg/dL (0.5-1.4) 09/16/16 09:45 Est GFR ( Amer) 43 09/16/16 09:45 Est GFR (Non-Af Amer) 36 09/16/16 09:45 Random Glucose 76 mg/dL (70-110) 09/16/16 09:45 Calcium 9.6 mg/dL (8.4-10.5) 09/16/16 09:45 Phosphorus 5.0 mg/dL (2.5-4.5) H 09/10/16 14:30 Magnesium 1.8 mg/dL (1.7-2.2) 09/10/16 14:30 Iron 59 ug/dL (45-180) 09/10/16 18:35 TIBC 252 ug/dL (265-497) L 09/10/16 18:35 % Saturation 23 % (20-55) 09/10/16 18:35 Ferritin 1730.0 ng/mL 09/10/16 18:35 Total Bilirubin 0.8 mg/dL (0.2-1.3) 09/16/16 09:45 AST 67 U/L (15-39) H 09/16/16 09:45 ALT 87 U/L (7-56) H 09/16/16 09:45 Alkaline Phosphatase 520 U/L (38-133) H 09/16/16 09:45 Lactate Dehydrogenase 425 U/L (333-699) 09/10/16 14:30 Total Creatine Kinase 26 U/L (35-230) L 09/10/16 14:30 Troponin I < 0.01 ng/mL D 09/10/16 14:30 Total Protein 6.9 g/dL (5.8-8.3) 09/16/16 09:45 Albumin 3.3 g/dL (3.0-4.8) 09/16/16 09:45 Globulin 3.6 gm/dL 09/16/16 09:45 Albumin/Globulin Ratio 0.9 (1.1-1.8) L 09/16/16 09:45 Vitamin B12 858 pg/mL (239-931) 09/10/16 18:35 Folate > 20.0 ng/mL 09/10/16 18:35 Urine Color Yellow (YELLOW) 09/10/16 17:50 Urine Appearance Clear (CLEAR) 09/10/16 17:50 Urine pH 7.5 (4.7-8.0) 09/10/16 17:50 Ur Specific Bussey 1.010 (1.005-1.035) 09/10/16 17:50 Urine Protein Trace mg/dL (<30 mg/dL) H 09/10/16 17:50 Urine Glucose (UA) Negative mg/dL (NEGATIVE) 09/10/16 17:50 Urine Ketones Negative mg/dL (NEGATIVE) 09/10/16 17:50 Urine Blood Large (NEGATIVE) H 09/10/16 17:50 Urine Nitrate Negative (NEGATIVE) 09/10/16 17:50 Urine Bilirubin Negative (NEGATIVE) 09/10/16 17:50 Urine Urobilinogen 0.2 E.U./dL (<1 E.U./dL) 09/10/16 17:50 Ur Leukocyte Esterase Large Sylvia/uL (NEGATIVE) H 09/10/16 17:50 Urine RBC 1 - 3 /hpf (0-2) 09/10/16 17:50 Urine WBC 10 - 15 /hpf (0-6) 09/10/16 17:50 Ur Epithelial Cells 0 - 2 /hpf (0-5) 09/10/16 17:50 Urine Bacteria Few (NEG) 09/10/16 17:50 Urine Opiates Screen Negative (NEGATIVE) 09/10/16 18:30 Urine Methadone Screen Negative (NEGATIVE) 09/10/16 18:30 Ur Barbiturates Screen Negative (NEGATIVE) 09/10/16 18:30 Ur Phencyclidine Scrn Negative (NEGATIVE) 09/10/16 18:30 Ur Amphetamines Screen Negative (NEGATIVE) 09/10/16 18:30 U Benzodiazepines Scrn Negative (NEGATIVE) 09/10/16 18:30 U Oth Cocaine Metabols Negative (NEGATIVE) 09/10/16 18:30 U Cannabinoids Screen Negative (NEGATIVE) 09/10/16 18:30 Hepatitis A IgM Ab Negative (NEGATIVE) 09/11/16 08:00 Hep Bs Antigen Negative (NEGATIVE) 09/11/16 08:00 Hep B Core IgM Ab Negative (NEGATIVE) 09/11/16 08:00 Hepatitis C Antibody Negative (NEGATIVE) 09/11/16 08:00 Blood Type O POSITIVE 09/14/16 11:30 Antibody Screen Negative 09/14/16 11:30 Crossmatch See Detail 09/14/16 11:30 BBK History Checked Patient has bt 09/14/16 11:30 - Hospital Course Hospital Course: 81 yo F w/PMHx of CVA 2012, anemia, CKD, SLE, depression/anxiety/bipolar, CAD, CHF, HTN, hypothyroid, seizures, presents from physician's office for low hemoglobin and sent to ED for blood transfusion. Initial hemoglobin was 6.0, and 2 units of irritated PRBCs were transfused in ED. Admitted to telemetry for anemia and GI bleed. On the floor, hemoglobin was monitored and another PRBC was transfused as needed. Pt was on peg feeds and medicine administration. Pt vomited three times during admission, for which feeds were on hold and abdominal XR and CT obtained without acute findings, so feeds resumed. , the medical POA, did not want any invasive or aggresive procedures, so palliative consult was made and patient discharged in fair condition to home hospice care. Antibiotics administered for UTI. Psychiatry is also followed for dementia/ delirium and underlying depression/bipolar Pt d/c in improved condition to home hospice with the following instructions: PT DISCHARGED TO HOME WITH HOME HOSPICE Please continue home medications except aspirin and plavix due to recent bleed. Please continue two days only of ciprofloxacin 500 mg twice daily for urinary tract infection. Discharge Exam - Head Exam Head Exam: ATRAUMATIC, NORMAL INSPECTION - Eye Exam Eye Exam: EOMI, Normal appearance - ENT Exam ENT Exam: Normal Exam, Normal External Ear Exam - Respiratory Exam Respiratory Exam: NORMAL BREATHING PATTERN, UNREMARKABLE - Cardiovascular Exam Cardiovascular Exam: Bradycardia, +S1, +S2 - GI/Abdominal Exam GI & Abdominal Exam: Soft. absent: Tenderness - Exam External exam: absent: Ecchymosis, Erythema - Extremities Exam Extremities exam: normal capillary refill, pedal pulses present - Neurological Exam Neurological exam: Alert Additional comments: Pt is bed bound - Skin Skin Exam: Dry, Intact Discharge Plan - Discharge Medications Prescriptions: Ciprofloxacin 500 mg PEG Q12 #1 vial - Follow Up Plan Condition: IMPROVED Disposition: HOSPICE - HOME Instructions: Hospice (DC) Additional Instructions: PT DISCHARGED TO HOME WITH HOME HOSPICE Please continue home medications except aspirin and plavix due to recent bleed. Please continue two days only of ciprofloxacin 500 mg twice daily for urinary tract infection. Referrals: Nilesh Croft MD [Primary Care Provider] - <Padmini ANGELO,[facility] - Last Filed: 09/17/16 11:40> Provider - Provider Date of Admission: 09/10/16 16:35 Attending physician: Matias Jovel MD Primary care physician: Nilesh Croft MD Time Spent in preparation of Discharge (in minutes): 35 Hospital Course - Lab Results Lab Results: Micro Results 09/10/16 17:50 Urine Urine Culture - Final Klebsiella Pneumoniae Ssp Pneu Most Recent Lab Values WBC 4.2 10^3/ul (4.5-11.0) L 09/16/16 09:45 RBC 3.09 10^6/uL (3.5-6.1) L 09/16/16 09:45 Hgb 10.1 gm/dL (12.0-16.0) L 09/16/16 09:45 Hct 30.4 % (36.0-48.0) L 09/16/16 09:45 MCV 98.4 fL (80.0-105.0) 09/16/16 09:45 MCH 32.7 pg (25.0-35.0) 09/16/16 09:45 MCHC 33.2 g/dl (31.0-37.0) 09/16/16 09:45 RDW 17.6 % (11.5-14.5) H 09/16/16 09:45 Plt Count 144 10^3/uL (120.0-450.0) 09/16/16 09:45 MPV 9.0 fl (7.0-11.0) 09/16/16 09:45 Gran % 68.1 % (50.0-68.0) H 09/16/16 09:45 Lymph % (Auto) 13.9 % (22.0-35.0) L 09/16/16 09:45 Dickey % (Auto) 5.7 % (1.0-6.0) 09/16/16 09:45 Eos % (Auto) 11.8 % (1.5-5.0) H 09/16/16 09:45 Baso % (Auto) 0.5 % (0.0-3.0) 09/16/16 09:45 Gran # 2.88 (1.4-6.5) 09/16/16 09:45 Lymph # 0.6 (1.2-3.4) L 09/16/16 09:45 Dickey # 0.2 (0.1-0.6) 09/16/16 09:45 Eos # 0.5 (0.0-0.7) 09/16/16 09:45 Baso # 0.02 K/mm3 (0.0-2.0) 09/16/16 09:45 Retic Count 1.93 % (0.5-1.5) H 09/10/16 18:35 PT 11.2 Seconds (9.9-11.8) 09/10/16 14:30 INR 1.04 (0.93-1.08) 09/10/16 14:30 APTT 31.0 Seconds (23.7-30.8) H 09/10/16 14:30 Sodium 145 mmol/L (132-148) 09/16/16 09:45 Potassium 5.0 mmol/L (3.6-5.0) 09/16/16 15:42 Chloride 114 mmol/L (98-107) H 09/16/16 09:45 Carbon Dioxide 22 mmol/L (21-33) 09/16/16 09:45 Anion Gap 14 (10-20) 09/16/16 09:45 BUN 76 mg/dL (7-21) H 09/16/16 09:45 Creatinine 1.4 mg/dL (0.5-1.4) 09/16/16 09:45 Est GFR ( Amer) 43 09/16/16 09:45 Est GFR (Non-Af Amer) 36 09/16/16 09:45 Random Glucose 76 mg/dL (70-110) 09/16/16 09:45 Calcium 9.6 mg/dL (8.4-10.5) 09/16/16 09:45 Phosphorus 5.0 mg/dL (2.5-4.5) H 09/10/16 14:30 Magnesium 1.8 mg/dL (1.7-2.2) 09/10/16 14:30 Iron 59 ug/dL (45-180) 09/10/16 18:35 TIBC 252 ug/dL (265-497) L 09/10/16 18:35 % Saturation 23 % (20-55) 09/10/16 18:35 Ferritin 1730.0 ng/mL 09/10/16 18:35 Total Bilirubin 0.8 mg/dL (0.2-1.3) 09/16/16 09:45 AST 67 U/L (15-39) H 09/16/16 09:45 ALT 87 U/L (7-56) H 09/16/16 09:45 Alkaline Phosphatase 520 U/L (38-133) H 09/16/16 09:45 Lactate Dehydrogenase 425 U/L (333-699) 09/10/16 14:30 Total Creatine Kinase 26 U/L (35-230) L 09/10/16 14:30 Troponin I < 0.01 ng/mL D 09/10/16 14:30 Total Protein 6.9 g/dL (5.8-8.3) 09/16/16 09:45 Albumin 3.3 g/dL (3.0-4.8) 09/16/16 09:45 Globulin 3.6 gm/dL 09/16/16 09:45 Albumin/Globulin Ratio 0.9 (1.1-1.8) L 09/16/16 09:45 Vitamin B12 858 pg/mL (239-931) 09/10/16 18:35 Folate > 20.0 ng/mL 09/10/16 18:35 Urine Color Yellow (YELLOW) 09/10/16 17:50 Urine Appearance Clear (CLEAR) 09/10/16 17:50 Urine pH 7.5 (4.7-8.0) 09/10/16 17:50 Ur Specific Bussey 1.010 (1.005-1.035) 09/10/16 17:50 Urine Protein Trace mg/dL (<30 mg/dL) H 09/10/16 17:50 Urine Glucose (UA) Negative mg/dL (NEGATIVE) 09/10/16 17:50 Urine Ketones Negative mg/dL (NEGATIVE) 09/10/16 17:50 Urine Blood Large (NEGATIVE) H 09/10/16 17:50 Urine Nitrate Negative (NEGATIVE) 09/10/16 17:50 Urine Bilirubin Negative (NEGATIVE) 09/10/16 17:50 Urine Urobilinogen 0.2 E.U./dL (<1 E.U./dL) 09/10/16 17:50 Ur Leukocyte Esterase Large Sylvia/uL (NEGATIVE) H 09/10/16 17:50 Urine RBC 1 - 3 /hpf (0-2) 09/10/16 17:50 Urine WBC 10 - 15 /hpf (0-6) 09/10/16 17:50 Ur Epithelial Cells 0 - 2 /hpf (0-5) 09/10/16 17:50 Urine Bacteria Few (NEG) 09/10/16 17:50 Urine Opiates Screen Negative (NEGATIVE) 09/10/16 18:30 Urine Methadone Screen Negative (NEGATIVE) 09/10/16 18:30 Ur Barbiturates Screen Negative (NEGATIVE) 09/10/16 18:30 Ur Phencyclidine Scrn Negative (NEGATIVE) 09/10/16 18:30 Ur Amphetamines Screen Negative (NEGATIVE) 09/10/16 18:30 U Benzodiazepines Scrn Negative (NEGATIVE) 09/10/16 18:30 U Oth Cocaine Metabols Negative (NEGATIVE) 09/10/16 18:30 U Cannabinoids Screen Negative (NEGATIVE) 09/10/16 18:30 Hepatitis A IgM Ab Negative (NEGATIVE) 09/11/16 08:00 Hep Bs Antigen Negative (NEGATIVE) 09/11/16 08:00 Hep B Core IgM Ab Negative (NEGATIVE) 09/11/16 08:00 Hepatitis C Antibody Negative (NEGATIVE) 09/11/16 08:00 Blood Type O POSITIVE 09/14/16 11:30 Antibody Screen Negative 09/14/16 11:30 Crossmatch See Detail 09/14/16 11:30 BBK History Checked Patient has bt 09/14/16 11:30 Attending/Attestation - Attestation I have personally seen and examined this patient.: Yes I have fully participated in the care of the patient.: Yes I have reviewed all pertinent clinical information, including history, physical exam and plan: Yes Notes (Text): 09/17/16 11:36 81 year old female with past medical history of CVA, chronic anemia, SLE, depression, bipolar, anxiety, CAD and hypothyroidism who was sent by pmd for anemia with hemoglobin of 6.0. This improved after PRBC transfusions. did not want any aggressive or invasive procedures and wishes she would come home soon.Hospice and palliative consult was obtained.Patient agreed fro home hospice.Patient was discharged home on home hospice.Aspirin and Plavix were held at the time opf discharge as patient GI work for anemia was not completed and she was going home on home hospice. She was tolerating tube feeding at the time of discharge. Hyperkalemia was also resolved at the time of discharge. Patient has advance dementia and is not communicative. Prognosis is guarded.
--- NOTE | 2016-09-16 17:23 | CON ---
DATE: 09/16/2016 REASON FOR CONSULTATION: Hyperkalemia, acute kidney injury. HISTORY OF PRESENTING ILLNESS: An 81-year-old lady previously unknown to me, essentially nonverbal, does not follow commands. The patient was initially transferred to the Emergency Room from Dr. Arvind garcia's office because of low hemoglobin. She was transferred in for a blood transfusion. As per the in itial H and P, patient was awake, but not responsive at the time of presentation. She was given 2 un its of blood transfusion. She was given another unit later, so a total of 3 units of blood transfusio n. She was also given Kayexalate intermittently for her hyperkalemia. Consultation is requested tod ay because of elevated potassium of 5.4, elevated BUN and creatinine of 76 and 1.4. PAST MEDICAL AND SURGICAL HISTORY: Obtained from chart. CVA in 2013, chronic kidney disease stage I II/IV, SLE, depression, anxiety, bipolar disorder, CAD, CHF, hypertension, hypothyroidism, seizures. FAMILY HISTORY: Noncontributory. SOCIAL HISTORY: No smoking, no alcohol use, no IV drug abuse. ALLERGIES: CODEINE, BACTRIM, IODINE. CURRENT MEDICATIONS: Dulcolax, iron, Keppra, milk of magnesia, Ritalin, Rocephin 1 g daily, Synthroi d, Tylenol, Zofran, sertraline, Zyprexa. REVIEW OF SYSTEMS: Unavailable as patient is able to not cooperate. PHYSICAL EXAMINATION: GENERAL: An elderly lady lying in bed. VITAL SIGNS: Blood pressure 144/61, heart rate 52, respiratory rate 18, temperature 97.7. HEENT: Normocephalic, atraumatic. NECK: Supple. No JVD. LUNGS: Bilateral equal air entry, no rales. CARDIAC: S1, S2, regular rate and rhythm, no murmur, no rub. ABDOMEN: Soft, nondistended, nontender, bowel sounds present. EXTREMITIES: Contractures of lower extremities, sacral decubitus. INTAKE AND OUTPUT: . LABORATORY DATA: WBC 4.2, hemoglobin 10, hematocrit 30, platelets 144. Sodium 145, potassium 5.4, c hloride 114, CO2 of 22, BUN 76, creatinine 1.4, glucose 76, calcium 9.6, AST 67, ALT 87, albumin 3.3. CT of the abdomen: Diverticulosis without evidence of diverticulitis, mild cystitis. Abdominal x-ray. ASSESSMENT: 1. Mild prerenal azotemia. 2. Underlying chronic kidney disease stage III. 3. Mild hyperkalemia. 4. Hypernatremia. 5. Dehydration. 6. Anemia. 7. History of congestive heart failure and coronary artery disease. 8. History of cerebrovascular accident. PLAN: 1. Limit use of Kayexalate. 2. Gentle hydration. 3. Increase water via PEG. 4. Continue antibiotics as per infectious disease recommendations. 5. Monitor LFTs. 6. Agree with palliative care consult. Tita Herrera MD cc: [id number] TT: 09/16/2016 17:22:06 Confirmation # [id number] Dictation # [id number]
--- NOTE | 2016-09-16 22:40 | PN ---
DATE: 09/16/2016 SUBJECTIVE: This patient was seen and evaluated earlier and the patient is in no distress. The patient was restarted on the feeding. PHYSICAL EXAMINATION: VITAL SIGNS: Blood pressure 141/61, heart rate 52, respirations 18, O2 saturation , afebrile. HEENT: Atraumatic, anicteric. NECK: Supple. HEART: S1, S2 heard. LUNGS: Bilateral air entry present. ABDOMEN: Soft. G-tube in place. IMPRESSION/PLAN: This 81-year-old patient admitted with severe anemia, sepsis. The patient had episode of vomiting yesterday, had a CT done which showed no obstruction. The patient is being considered for hospice at the time of evaluation. Continue the supportive care. Nancy Garces MD cc: [id number] TT: 09/16/2016 22:39:35 Confirmation # [id number] Dictation # [id number] mn MTDD
--- NOTE | 2016-09-17 02:09 | CARD ---
APPROVED REPORT EKG Measurement Heart [id number] <Conclusion> Normal sinus rhythm Minimal voltage criteria for LVH, may be normal variant Borderline ECG
== END 2016-09-16 17:15 | disposition hospice, home (50) | DRG 811 ==
LOC: ED 13:51 → ERH 16:35 → 2RSO 21:58 → 3RSO 09-15 12:50 → 3RNO 09-15 12:51
PROVIDERS: ADMIT Internal Medicine; ATTEND Internal Medicine
PROC: 30233N1 Transfusion of Nonautologous Red Blood Cells into Peripheral Vein, Percutaneous Approach (ICD-10-PCS; principal; 2016-09-10)
DX: D64.9 Anemia, unspecified (principal); A41.9 Sepsis, unspecified organism; L89.154 Pressure ulcer of sacral region, stage 4; L89.304 Pressure ulcer of unspecified buttock, stage 4; G04.81 Other encephalitis and encephalomyelitis; E87.0 Hyperosmolality and hypernatremia; N18.4 Chronic kidney disease, stage 4 (severe); N17.9 Acute kidney failure, unspecified; L89.153 Pressure ulcer of sacral region, stage 3; I13.0 Hypertensive heart and chronic kidney disease with heart failure and stage 1 through stage 4 chronic kidney disease, or unspecified chronic kidney disease; K92.2 Gastrointestinal hemorrhage, unspecified; E46 Unspecified protein-calorie malnutrition; N39.0 Urinary tract infection, site not specified; E87.1 Hypo-osmolality and hyponatremia; F33.9 Major depressive disorder, recurrent, unspecified; M32.19 Other organ or system involvement in systemic lupus erythematosus; I50.9 Heart failure, unspecified; E87.5 Hyperkalemia; R13.10 Dysphagia, unspecified; F01.50 Vascular dementia, unspecified severity, without behavioral disturbance, psychotic disturbance, mood disturbance, and anxiety; Z93.1 Gastrostomy status; E86.0 Dehydration; Z95.1 Presence of aortocoronary bypass graft; Z90.49 Acquired absence of other specified parts of digestive tract; Z87.440 Personal history of urinary (tract) infections; Z79.02 Long term (current) use of antithrombotics/antiplatelets; Z79.82 Long term (current) use of aspirin; Z79.899 Other long term (current) drug therapy; Z66 Do not resuscitate; Z74.01 Bed confinement status; Z95.2 Presence of prosthetic heart valve; Z95.5 Presence of coronary angioplasty implant and graft; Z96.653 Presence of artificial knee joint, bilateral; E78.00 Pure hypercholesterolemia, unspecified; E03.9 Hypothyroidism, unspecified; B96.1 Klebsiella pneumoniae [K. pneumoniae] as the cause of diseases classified elsewhere; F20.9 Schizophrenia, unspecified; F31.9 Bipolar disorder, unspecified; F41.1 Generalized anxiety disorder; I25.2 Old myocardial infarction; G40.909 Epilepsy, unspecified, not intractable, without status epilepticus; G93.89 Other specified disorders of brain; I25.10 Atherosclerotic heart disease of native coronary artery without angina pectoris; Z86.73 Personal history of transient ischemic attack (TIA), and cerebral infarction without residual deficits; R32 Unspecified urinary incontinence; R15.9 Full incontinence of feces; M19.90 Unspecified osteoarthritis, unspecified site; Z88.1 Allergy status to other antibiotic agents; Z88.5 Allergy status to narcotic agent; Z88.8 Allergy status to other drugs, medicaments and biological substances; Z87.892 Personal history of anaphylaxis; R40.2412 Glasgow coma scale score 13-15, at arrival to emergency department; E87.6 Hypokalemia; L81.9 Disorder of pigmentation, unspecified; K52.9 Noninfective gastroenteritis and colitis, unspecified; K55.20 Angiodysplasia of colon without hemorrhage; G31.9 Degenerative disease of nervous system, unspecified; R31.9 Hematuria, unspecified; G47.00 Insomnia, unspecified; R11.10 Vomiting, unspecified; Z53.8 Procedure and treatment not carried out for other reasons; I49.9 Cardiac arrhythmia, unspecified